=== PATIENT | male | born 1985 | race Caucasian/White ===

== ENCOUNTER 2018-05-23 20:02 | Emergency (ER) | payer MEDICAID ==
[2018-05-23 20:14] VITALS: BP 142/98
[2018-05-23] MEDS ORDERED: LORazepam 1 MG Tab PO ONE (20:40)
[2018-05-23] MEDS ORDERED: Fluorescein 0.6 MG Ophth Strip EYERT ONE (20:41)
--- NOTE | 2018-05-23 20:50 | EDM.PDOC ---
<Nicole Saxena - Last Filed: 05/23/18 21:32> ED HPI GENERAL MEDICAL PROBLEM - General Chief Complaint: Allergic Reaction Stated Complaint: SOB Time Seen by Provider: 05/23/18 20:09 Source of Information: Reports: Patient History Limitations: Reports: No Limitations - History of Present Illness INITIAL COMMENTS - FREE TEXT/NARRATIVE: 32 y/o male presents to ER with multiple complaints. He reports having cough, congestion, ear pain and right ear drainage for the past few days. Patient states he has been using Peppermint oil for his symptoms and he used it recently for his dental pain. He states he feels he is having a allergic reaction to this. He states he feels like he can't swallow. He has a past medical history of abusing stimulates, which results in his picking of his skin and development of cellulitis. He states he recently removed "a 1/2 contact out of his right." He states afterwards he then developed purulent drainage from it. He denies and fever or chills. He states he has not been around any sick individuals. Onset: Today Onset Date: 05/23/18 Onset Time: 09:00 Duration: Hour(s):, Getting Worse Location: Reports: Face, Chest, Abdomen Quality: Reports: Ache Severity: Mild Improves with: Reports: None, Other (used peppermint oil) Worsens with: Reports: Other (use of peppermint oil ) Associated Symptoms: Reports: No Other Symptoms, Cough, Shortness of Breath. Denies: Chest Pain, Fever/Chills Treatments NUTRITION CONSULTANT: Reports: Other (see below) Other Treatments NUTRITION CONSULTANT: Benadryl - Related Data Allergies Allergy/AdvReac Type Severity Reaction Status Date / Time bee venom protein (honey bee) Allergy Anaphylactic Verified 05/23/18 20:19 Shock Penicillins Allergy Hives Verified 05/23/18 21:39 strawberry Allergy Swollen Verified 05/23/18 20:10 Tongue Home Meds: Home Meds Mupirocin Oint [Bactroban Oint] 22 gm TOP TID #1 tube 12/17/15 [Rx] Ofloxacin [Ocuflox 0.3% Ophth Soln] 2 drop EYERT QID #1 bottle 12/17/15 [Rx] Triamcinolone Acetonide [Triamcinolone Acetonide 0.1% Oint] 15 gm TOP BID #1 tube 12/17/15 [Rx] Doxycycline [Vibramycin] 100 mg PO BID #20 cap 05/23/18 [Rx] Past Medical History Musculoskeletal History: Reports: Other (See Below) Other Musculoskeletal History: Rhabdomylosis history Neurological History: Reports: Other (See Below) Other Neuro History: [place] palsy Psychiatric History: Reports: Addiction, Anxiety - Past Surgical History GI Surgical History: Reports: Appendectomy Other Musculoskeletal Surgeries/Procedures:: Rhabdo Social & Family History - Tobacco Use Smoking Status *Q: Current Some Day Smoker Years of Tobacco use: 0 Packs/Tins Daily: 0 - Caffeine Use Caffeine Use: Reports: Coffee - Recreational Drug Use Recreational Drug Type: Reports: Marijuana/Hashish, Other (see below) Other Recreational Drug Type: CBD oil Recreational Drug Use Frequency: Daily ED ROS ALLERGIC REACTION - Review of Systems Review Of Systems: See Below Constitutional: Denies: Fever, Chills HEENT: Reports: Dental Pain, Ear Pain, Eye Discharge Respiratory: Reports: Shortness of Breath. Denies: Cough Cardiovascular: Reports: Chest Pain Endocrine: Reports: No Symptoms GI/Abdominal: Reports: No Symptoms : Reports: No Symptoms Musculoskeletal: Reports: No Symptoms Skin: Reports: Other ( multiple skin lesions noted on face and upper chest wall from patient picking.) Neurological: Reports: No Symptoms Psychiatric: Reports: Anxiety Hematologic/Lymphatic: Reports: No Symptoms Immunologic: Reports: No Symptoms ED EXAM GENERAL NO PERIP PULSE - Physical Exam Exam: See Below Exam Limited By: No Limitations General Appearance: Alert, WD/WN, No Apparent Distress Ears: Normal External Exam, Normal Canal, Hearing Grossly Normal, Normal TMs Nose: Normal Inspection, Normal Mucosa, No Blood Throat/Mouth: Normal Lips, Normal Teeth, Normal Gums, Normal Voice, No Airway Compromise, Inflammation Head: Atraumatic, Normocephalic. No: Facial Swelling, Sinus Tenderness Neck: Normal Inspection, Supple, Non-Tender, Full Range of Motion Respiratory/Chest: No Respiratory Distress, Lungs Clear, Normal Breath Sounds, No Accessory Muscle Use Cardiovascular: Normal Peripheral Pulses, Regular Rate, Rhythm, No Edema, No Gallop, No JVD, No Murmur Back Exam: Normal Inspection, Full Range of Motion Extremities: Normal Inspection, Normal Range of Motion, Non-Tender, No Pedal Edema, Normal Capillary Refill Neurological: Alert, Oriented, CN II-XII Intact, Normal Cognition, Normal Gait, Normal Reflexes, No Motor/Sensory Deficits Psychiatric: Anxious Skin Exam: Warm, Dry, Intact, Other (multiple lesions on face and upper chest wall) Lymphatic: No Adenopathy Course - Vital Signs Last Recorded V/S: Last Vital Signs Temp 98.2 F 05/23/18 20:10 Pulse 98 05/23/18 20:10 Resp 16 05/23/18 20:10 BP 142/98 H 05/23/18 20:10 Pulse Ox 100 05/23/18 20:10 - Orders/Labs/Meds Meds: Medications Discontinued Medications Generic Name Dose Route Start Last Admin Trade Name Waldemar PRN Reason Stop Dose Admin Doxycycline Hyclate 200 mg 05/23/18 21:24 05/23/18 21:33 Vibramycin PO 05/23/18 21:25 200 mg ONETIME ONE Administration Fluorescein Sodium 0.6 mg 05/23/18 20:41 05/23/18 20:50 Ful-Olive EYERT 05/23/18 20:42 0.6 mg ONETIME ONE Administration Lorazepam 1 mg 05/23/18 20:40 05/23/18 20:50 Ativan PO 05/23/18 20:41 1 mg ONETIME ONE Administration Proparacaine HCl 2 ml 05/23/18 21:19 05/23/18 21:34 Proparacaine 0.5% Ophth Soln EYERT 05/23/18 21:20 2 ml ONETIME ONE Administration Proparacaine HCl Confirm 05/23/18 21:17 05/23/18 21:32 Proparacaine 0.5% Ophth Soln Administered 05/23/18 21:18 Not Given Dose 15 ml .ROUTE .STK-MED ONE - Re-Assessments/Exams Free Text/Narrative Re-Assessment/Exam: 05/23/18 21:12 He received Ativan and his condition improved. Patient is resting comfortable and is less anxious. 05/23/18 21:27 His crain lamp revealed no corneal abrasion. Departure - Departure Time of Disposition: 21:29 Disposition: Home, Self-Care 01 Preliminary Cause of *Q: Cardiac Arrest Condition: Good Clinical Impression: Cellulitis, Conjunctivitis - Discharge Information *PRESCRIPTION DRUG MONITORING PROGRAM REVIEWED*: Not Applicable *COPY OF PRESCRIPTION DRUG MONITORING REPORT IN PATIENT CHI: Not Applicable Prescriptions: Doxycycline [Vibramycin] 100 mg PO BID #20 cap Instructions: Bacterial Conjunctivitis, [id number], Cellulitis, Adult Referrals: PCP,None [Primary Care Provider] - Forms: ED Department Discharge Additional Instructions: you have been diagnosis with bacterial conjunctivitis and cellulitis. Take the antibiotic until they are gone. Follow up with your PCP. Do not wear contacts until your eye infection is cleared up. Return to the ER for any new or acute worsening symptoms. <Brian Olson - Last Filed: 05/23/18 21:45> Course - Re-Assessments/Exams Free Text/Narrative Re-Assessment/Exam: 05/23/18 21:45 I examined the patient myself and I agree with Nicole's assessment, charting and plan.
[2018-05-23] MEDS ORDERED: Proparacaine 0.5% Ophth Soln 15 ML Bottle ONE (21:17)
[2018-05-23] MEDS ORDERED: Proparacaine 0.5% Ophth Soln 15 ML Bottle EYERT ONE (21:19)
[2018-05-23] MEDS ORDERED: Doxycycline 100 MG Cap PO ONE (21:24)
== END 2018-05-23 22:30 | disposition home or self-care (01) ==
LOC: JD.ED 20:02
DX: H10.89 Other conjunctivitis (principal); L03.211 Cellulitis of face; L03.313 Cellulitis of chest wall; F17.210 Nicotine dependence, cigarettes, uncomplicated; Z88.1 Allergy status to other antibiotic agents; Z91.018 Allergy to other foods
CPT/HCPCS: 99283; A9270

== ENCOUNTER 2020-06-18 12:26 | Inpatient (IN) | payer MEDICAID, OTHER ==
[2020-06-18] MEDS ORDERED: Ondansetron 4 MG/2 ML SDV IVPUSH ONE (12:47)
[2020-06-18] MEDS ORDERED: Sodium Chloride 0.9% 10 ML Syringe FLUSH PRN (12:50)
[2020-06-18] MEDS ORDERED: Diatrizoate Meglumine/Diatrizoate Sodium 37% 120 ML Bottle PO ONE (12:50)
[2020-06-18] MEDS ORDERED: Iopamidol 612 MG/ML 100 ML Bottle IVPUSH ONE (12:50)
[2020-06-18] MEDS ORDERED: Iopamidol 612 MG/ML 50 ML SDV IVPUSH ONE (12:50)
[2020-06-18] MEDS ORDERED: Sodium Chloride 0.9% 1,000 ML IV SCH (13:00)
--- NOTE | 2020-06-18 13:00 | EDM.PDOC ---
ED HPI GENERAL MEDICAL PROBLEM - General Chief Complaint: Abdominal Pain Stated Complaint: ABDOMINAL PAIN Time Seen by Provider: 06/18/20 12:37 Source of Information: Reports: Patient, RN Notes Reviewed History Limitations: Reports: No Limitations - History of Present Illness INITIAL COMMENTS - FREE TEXT/NARRATIVE: Patient is a 34-year-old male who presents to the ED for evaluation of his upper abdomen pain. Patient notes that he woke up this morning, and his upper abdomen started to develop some sharp stabbing pain. He notes the pain seems to have gotten worse throughout the day, seems to be intermittent. He has had pain like this before in the past, and thought that he could have possibly had an ulcer. He is not taking any mcdo-sbo-orcttix medication for reflux or for ulcer prophylaxis. He is not seeing anybody for further evaluation of this. Patient notes at baseline, he has some diarrhea and this does not seem to have worsened. He did feel some nausea earlier today, he went home from work and drink a little bit of water, that seem to make the pain worse in his stomach, he did have his girlfriend try some baking soda and water, but he notes that he vomited this up shortly after ingesting it. He has had no fevers or chills, cough or shortness of breath, redness or chest pain. He has had an appendectomy, but still retains his gallbladder and denies any other abdomen surgeries. Patient notes that the pain is a stabbing sensation and goes straight through to his back and does not radiate anywhere else. He notes no one else has been sick like this in his household. Does note that his dad has a history of ulcerative colitis but he has never had any sort of work-up for anything like this. Does note that the stomach pain seems to worsen with certain foods, and increased stress, he does note that he has had increased stress at work as well. Upper Abdominal Pain Score (Numeric/FACES): 8 - Related Data Allergies Allergy/AdvReac Type Severity Reaction Status Date / Time bee venom protein (honey bee) Allergy Anaphylactic Verified 06/18/20 12:39 Shock Penicillins Allergy Hives Verified 06/18/20 12:39 strawberry Allergy Swollen Verified 06/18/20 12:39 Tongue Home Meds: Home Meds . 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 ED EXAM, GI/ABD - Physical Exam Exam: See Below Exam Limited By: No Limitations General Appearance: Alert, WD/WN, No Apparent Distress Respiratory/Chest: No Respiratory Distress, Lungs Clear, Normal Breath Sounds, No Accessory Muscle Use, Chest Non-Tender Cardiovascular: Normal Peripheral Pulses, Regular Rate, Rhythm, No Edema, No Murmur GI/Abdominal Exam: Normal Bowel Sounds, Soft, No Distention, No Mass, Tender (over epigastrium) Extremities: Normal Inspection, Normal Capillary Refill Neurological: Alert, Oriented, Normal Cognition, No Motor/Sensory Deficits Psychiatric: Normal Affect, Normal Mood Skin Exam: Warm, Dry, Intact, Normal Color, No Rash Course - Vital Signs Last Recorded V/S: Last Vital Signs Temp 99.1 F 06/18/20 14:09 Pulse 70 06/18/20 12:37 Resp 16 06/18/20 12:37 BP 143/97 H 06/18/20 12:37 Pulse Ox 99 06/18/20 12:37 - Orders/Labs/Meds Orders: Active Orders 24 hr Category Date Time Status Gastrointestinal Tube Mgmt [RC] ASDIRECTED Care 06/18/20 14:44 Active Sodium Chloride 0.9% [Normal Saline] 1,000 ml Med 06/18/20 13:00 Active IV ASDIRECTED Sodium Chloride 0.9% [Normal Saline] 1,000 ml Med 06/18/20 14:33 Active IV ONETIME Sodium Chloride 0.9% [Saline Flush] Med 06/18/20 12:50 Active 10 ml FLUSH ONETIME PRN Nasogastric Orogastric Tube Insertion [OM.PC] Routine Oth 06/18/20 14:44 Ordered Medication Orders Sodium Chloride (Normal Saline) 1,000 mls @ 999 mls/hr IV ASDIRECTED HEATHER Last Admin: 06/18/20 12:59 Dose: 999 mls/hr Documented by: MATLDIANNA Sodium Chloride (Normal Saline) 1,000 mls @ 150 mls/hr IV ONETIME ONE Stop: 06/18/20 21:12 Last Admin: 06/18/20 14:50 Dose: 150 mls/hr Documented by: MAELNA Sodium Chloride (Sodium Chloride 0.9% 10 Ml Syringe) 10 ml FLUSH ONETIME PRN PRN Reason: IV FLUSH Last Admin: 06/18/20 14:00 Dose: 10 ml Documented by: MARLEN Labs: Laboratory Tests 06/18/20 06/18/20 06/18/20 Range/Units 12:51 12:51 12:55 WBC 11.07 H (4.23-9.07) K/mm3 RBC 5.39 (4.63-6.08) M/mm3 Hgb 15.3 (13.7-17.5) gm/dl Hct 46.4 (40.1-51.0) % MCV 86.1 (79.0-92.2) fl MCH 28.4 (25.7-32.2) pg MCHC 33.0 (32.2-35.5) g/dl RDW Std Deviation 39.3 (35.1-43.9) fL Plt Count 236 (163-337) K/mm3 MPV 9.2 L (9.4-12.3) fl Neutrophils % (Manual) 81 H (40-60) % Band Neutrophils % 0 (0-10) % Lymphocytes % (Manual) 12 L (20-40) % Atypical Lymphs % 0 % Monocytes % (Manual) 7 (2-10) % Eosinophils % (Manual) 0 L (0.8-7.0) % Basophils % (Manual) 0 L (0.2-1.2) Platelet Estimate Adequate RBC Morph Comment Normal Sodium 142 (136-145) mEq/L Potassium 4.4 (3.5-5.1) mEq/L Chloride 103 (98-107) mEq/L Carbon Dioxide 27 (21-32) mEq/L Anion Gap 16.4 H (5-15) BUN 15 (7-18) mg/dL Creatinine 1.1 (0.7-1.3) mg/dL Est Cr Clr Drug Dosing 98.62 mL/min Estimated GFR (MDRD) > 60 (>60) mL/min BUN/Creatinine Ratio 13.6 L (14-18) Glucose 99 (74-106) mg/dL Calcium 9.6 (8.5-10.1) mg/dL Total Bilirubin 0.7 (0.2-1.0) mg/dL AST 29 (15-37) U/L ALT 41 (16-63) U/L Alkaline Phosphatase 77 (46-116) U/L C-Reactive Protein <0.2 (<1.0) mg/dL Total Protein 7.9 (6.4-8.2) g/dl Albumin 4.1 (3.4-5.0) g/dl Globulin 3.8 gm/dL Albumin/Globulin Ratio 1.1 (1-2) Lipase 110 (73-393) U/L Urine Color (Yellow) Urine Appearance (Clear) Urine pH (5.0-8.0) Ur Specific Goessel (1.005-1.030) Urine Protein (Negative) Urine Glucose (UA) (Negative) Urine Ketones (Negative) Urine Occult Blood (Negative) Urine Nitrite (Negative) Urine Bilirubin (Negative) Urine Urobilinogen (0.2-1.0) Ur Leukocyte Esterase (Negative) Urine RBC (0-5) /hpf Urine WBC (0-5) /hpf Ur Squamous Epith Cells (0-5) /hpf Urine Bacteria (FEW) /hpf Urine Mucus (FEW) /hpf Influenza Type A RNA (NEGATIVE) Influenza Type B RNA (NEGATIVE) SARS-CoV-2 RNA (KILLIAN) (NEGATIVE) 06/18/20 06/18/20 Range/Units 13:51 15:26 WBC (4.23-9.07) K/mm3 RBC (4.63-6.08) M/mm3 Hgb (13.7-17.5) gm/dl Hct (40.1-51.0) % MCV (79.0-92.2) fl MCH (25.7-32.2) pg MCHC (32.2-35.5) g/dl RDW Std Deviation (35.1-43.9) fL Plt Count (163-337) K/mm3 MPV (9.4-12.3) fl Neutrophils % (Manual) (40-60) % Band Neutrophils % (0-10) % Lymphocytes % (Manual) (20-40) % Atypical Lymphs % % Monocytes % (Manual) (2-10) % Eosinophils % (Manual) (0.8-7.0) % Basophils % (Manual) (0.2-1.2) Platelet Estimate RBC Morph Comment Sodium (136-145) mEq/L Potassium (3.5-5.1) mEq/L Chloride (98-107) mEq/L Carbon Dioxide (21-32) mEq/L Anion Gap (5-15) BUN (7-18) mg/dL Creatinine (0.7-1.3) mg/dL Est Cr Clr Drug Dosing mL/min Estimated GFR (MDRD) (>60) mL/min BUN/Creatinine Ratio (14-18) Glucose (74-106) mg/dL Calcium (8.5-10.1) mg/dL Total Bilirubin (0.2-1.0) mg/dL AST (15-37) U/L ALT (16-63) U/L Alkaline Phosphatase (46-116) U/L C-Reactive Protein (<1.0) mg/dL Total Protein (6.4-8.2) g/dl Albumin (3.4-5.0) g/dl Globulin gm/dL Albumin/Globulin Ratio (1-2) Lipase (73-393) U/L Urine Color Yellow (Yellow) Urine Appearance Clear (Clear) Urine pH 8.0 (5.0-8.0) Ur Specific Goessel 1.020 (1.005-1.030) Urine Protein Negative (Negative) Urine Glucose (UA) Negative (Negative) Urine Ketones Negative (Negative) Urine Occult Blood Negative (Negative) Urine Nitrite Negative (Negative) Urine Bilirubin Negative (Negative) Urine Urobilinogen 0.2 (0.2-1.0) Ur Leukocyte Esterase Negative (Negative) Urine RBC 0-5 (0-5) /hpf Urine WBC 0-5 (0-5) /hpf Ur Squamous Epith Cells 0-5 (0-5) /hpf Urine Bacteria Few (FEW) /hpf Urine Mucus Few (FEW) /hpf Influenza Type A RNA Negative (NEGATIVE) Influenza Type B RNA Negative (NEGATIVE) SARS-CoV-2 RNA (KILLIAN) Positive H (NEGATIVE) Meds: Medications Generic Name Dose Route Start Last Admin Trade Name Freq PRN Reason Stop Dose Admin Sodium Chloride 1,000 mls @ 999 mls/hr 06/18/20 13:00 06/18/20 12:59 Normal Saline IV 999 mls/hr ASDIRECTED HEATHER Administration Sodium Chloride 1,000 mls @ 150 mls/hr 06/18/20 14:33 06/18/20 14:50 Normal Saline IV 06/18/20 21:12 150 mls/hr ONETIME ONE Administration Sodium Chloride 10 ml 06/18/20 12:50 06/18/20 14:00 Sodium Chloride 0.9% 10 Ml Syringe FLUSH 10 ml ONETIME PRN Administration IV FLUSH Discontinued Medications Generic Name Dose Route Start Last Admin Trade Name Freq PRN Reason Stop Dose Admin Al Hydroxide/Mg Hydroxide 30 0 ml 06/18/20 14:09 06/18/20 14:19 ml/ Lidocaine HCl 15 ml PO 06/18/20 14:10 45 ml ONETIME ONE Administration Hydromorphone HCl 1 mg 06/18/20 15:51 06/18/20 15:55 Hydromorphone 1 Mg/Ml Syringe IVPUSH 06/18/20 15:52 1 mg ONETIME ONE Administration Iopamidol 50 ml 06/18/20 12:50 06/18/20 14:00 Iopamidol 612 Mg/Ml 50 Ml Sdv IVPUSH 06/18/20 12:51 50 ml ONETIME ONE Administration Iopamidol 100 ml 06/18/20 12:50 06/18/20 14:00 Iopamidol 612 Mg/Ml 100 Ml Bottle IVPUSH 06/18/20 12:51 100 ml ONETIME ONE Administration Ondansetron HCl 4 mg 06/18/20 12:47 06/18/20 13:00 Ondansetron 4 Mg/2 Ml Sdv IVPUSH 06/18/20 12:48 4 mg ONETIME ONE Administration - Re-Assessments/Exams Free Text/Narrative Re-Assessment/Exam: 06/18/20 12:59 Patient presents to the ED for his upper abdominal pain, it is highly suspicious for possible ulcer in nature, but due to the intensity of his pain we will go ahead and get some baseline labs, get IV started, do an abdomen pelvis CT with IV and oral contrast for further evaluation. 06/18/20 14:23 Laboratory evaluation demonstrates mildly elevated white count 11.07 with 81% neutrophils and no bands. Metabolic panel essentially unremarkable, lipase is within normal limits, CRP is undetectably low. I did go over the CT with Dr. Bui, and he believes it is suspicious for possible small bowel obstruction, still awaiting official radiology read however. This would be somewhat consistent with his clinical course, will try to run his case past the [facility]on on-call Dr. Capellan for possible hospital admission. 06/18/20 14:46 I was able to get a hold of Dr. Capellan, he does accept the patient for hospital admission. He does request NG tube to be placed, continue fluids, pain management nausea management. He will be in to evaluate the patient. 06/18/20 15:53 NG tube is in satisfactory position on x-ray. Patient was having increased pain, so we will go ahead and do 1 mg Dilaudid for management. 06/18/20 16:14 Was made aware by lab, the patient was COVID positive. I have called and made Dr. Capellan aware of this. Patient states that he is not known to have had Covid prior to today's positive result. Other than her GI symptoms, patient is fairly asymptomatic. Departure - Departure Time of Disposition: 14:47 Disposition: Refer to Observation Condition: Good Clinical Impression: Partial small bowel obstruction - Discharge Information Sepsis Event Note (ED) - Evaluation Sepsis Screening Result: No Definite Risk - Focused Exam Vital Signs: Vital Signs Temp Pulse Resp BP Pulse Ox 06/18/20 14:09 99.1 F 06/18/20 12:37 97.8 F 70 16 143/97 H 99 - My Orders Last 24 Hours: My Active Orders 06/18/20 12:50 Sodium Chloride 0.9% [Saline Flush] 10 ml FLUSH ONETIME PRN 06/18/20 13:00 Sodium Chloride 0.9% [Normal Saline] 1,000 ml IV ASDIRECTED 06/18/20 14:33 Sodium Chloride 0.9% [Normal Saline] 1,000 ml IV ONETIME 06/18/20 14:44 Gastrointestinal Tube Mgmt [RC] ASDIRECTED Nasogastric Orogastric Tube Insertion [OM.PC] Routine - Assessment/Plan Last 24 Hours: My Active Orders 06/18/20 12:50 Sodium Chloride 0.9% [Saline Flush] 10 ml FLUSH ONETIME PRN 06/18/20 13:00 Sodium Chloride 0.9% [Normal Saline] 1,000 ml IV ASDIRECTED 06/18/20 14:33 Sodium Chloride 0.9% [Normal Saline] 1,000 ml IV ONETIME 06/18/20 14:44 Gastrointestinal Tube Mgmt [RC] ASDIRECTED Nasogastric Orogastric Tube Insertion [OM.PC] Routine
[2020-06-18] MEDS ORDERED: Alum Hydrox/Mag Hydrox/Simeth 30 ML, Lidocaine 2% 15 ML PO ONE ×2 (14:09)
--- NOTE | 2020-06-18 14:31 | CT ---
CT abdomen and pelvis Technique: Multiple axial sections were obtained from above the dome of the diaphragm inferiorly through the pubic symphysis. Intravenous and oral contrast was utilized. Delayed images were obtained to the bladder. Reconstructed coronal and sagittal images were obtained. Findings: Visualized lung bases show nothing acute. Liver contains no focal abnormality. Spleen appears within normal limits. Adrenal glands show no nodule. Pancreas is within normal limits. Gallbladder contains no calcified gallstones. Kidneys show symmetric contrast enhancement with no hydronephrosis or mass. Aorta shows no aneurysm. No retroperitoneal adenopathy or mesenteric abnormalities are seen. Small fat-containing partial inguinal hernias are noted on both sides. There are dilated small bowel loops being seen within the left upper abdomen. There is transition between the dilated small bowel loops and normal small bowel loops within the left mid to lower abdomen. Etiology of this is not seen. No pelvic mass or adenopathy is seen. Delayed images through the bladder show contrast within the distal ureters and within the bladder. Bone window settings were reviewed which show a small detached spinous process of L5 which appears to be old. No acute osseous finding is seen. Impression: 1. Dilated proximal small bowel loops with transition point within the left mid to lower abdomen. Etiology for this is not seen. Findings are suspicious for possible partial small bowel obstruction. This could represent a small focal mesenteric defect or adhesion if patient has had prior surgery. 2. No additional abnormality is appreciated on CT study of the abdomen and pelvis. Diagnostic code #5
[2020-06-18] MEDS ORDERED: Sodium Chloride 0.9% 1,000 ML IV ONE (14:33)
--- NOTE | 2020-06-18 15:49 | CR ---
Chest: Portable view of the chest was obtained. Comparison: No prior chest imaging is available. Nasogastric tube is seen. Tip lies within the body of the stomach. Heart size and mediastinum are normal. Lungs are clear with no acute parenchymal change. Bony structures are grossly intact. Impression: 1. Satisfactory position of nasogastric tube. 2. Nothing acute is seen on portable chest x-ray. Diagnostic code #2
[2020-06-18] MEDS ORDERED: HYDROmorphone 1 MG/ML Syringe IVPUSH ONE (15:51)
[2020-06-18 16:10] LABS: CORONAVIRUS COVID-19 NAA POSITIVE (NEGATIVE)
[2020-06-18] MEDS ORDERED: Ondansetron 4 MG/2 ML SDV IV PRN (19:22)
--- NOTE | 2020-06-18 19:22 | PCM.HP.2 ---
H&P History of Present Illness - General Date of Service: 06/18/20 Admit Problem/Dx: Admission Diagnosis/Problem Admission Diagnosis/Problem Small bowel obstruction Source of Information: Patient History Limitations: Reports: No Limitations - History of Present Illness Initial Comments - Free Text/Narative: Patient started having acute onset colicky upper abdominal pain around 6:30 am today. The pain persisted. The pain was associated with nausea but did not have any emesis until early afternoon. He did have some diarrhea as well. He ate tacos last night but did well overnight. He presented to the hospital at 12-1 pm. In the ED WBC was 11, chem was approximately normal. CT a/p revealed SBO. Vapes. Had prior open appendectomy. NGT was placed in the ED> He reports that now the pain is better but still has some nausea Onset of Symptoms: Reports: Sudden Duration of Symptoms: Reports: Hour(s): (12), Intermittent Location: Reports: Abdomen Quality: Reports: Stabbing Severity: Moderate Improves with: Reports: None Worsens with: Reports: None Associated Symptoms: Reports: Nausea/Vomiting Upper Abdominal Pain Score (Numeric/FACES): 6 - Related Data Allergies/Adverse Reactions: Allergies Allergy/AdvReac Type Severity Reaction Status Date / Time bee venom protein (honey bee) Allergy Anaphylactic Verified 06/18/20 12:39 Shock Penicillins Allergy Hives Verified 06/18/20 12:39 strawberry Allergy Swollen Verified 06/18/20 12:39 Tongue Home Medications: Home Meds Ascorbic Acid [Vitamin C] 1,000 mg PO DAILY 06/18/20 [History] Lysine 1,000 mg PO DAILY 06/18/20 [History] Vit A/C/Biotin/Zinc/Selenometh [Biotin-Vitamin C Softgel] 1 each PO DAILY 06/18/20 [History] Past Medical History HEENT History: Reports: Other (See Below) Other HEENT History: Sinus issues in the past. Gastrointestinal History: Reports: GERD Genitourinary History: Reports: Renal Calculus, Other (See Below) Musculoskeletal History: Reports: Other (See Below) Other Musculoskeletal History: Rhabdomylosis history Neurological History: Reports: Concussion, Other (See Below) Other Neuro History: [place] palsy Psychiatric History: Reports: Addiction, Anxiety Dermatologic History: Reports: Other (See Below) Other Dermatologic History: Sensitive skin. - Infectious Disease History Infectious Disease History: Reports: Chicken Pox, Novel Coronavirus, Shingles - Past Surgical History GI Surgical History: Reports: Appendectomy Other Musculoskeletal Surgeries/Procedures:: Rhabdo Social & Family History - Family History Family Medical History: No Pertinent Family History - Tobacco Use Tobacco Use Status *Q: Never Tobacco User Years of Tobacco use: 2 Packs/Tins Daily: 0.1 - Caffeine Use Caffeine Use: Reports: Coffee, Energy Drinks, Soda - Recreational Drug Use Recreational Drug Use: No H&P Review of Systems - Review of Systems: Review Of Systems: See Below General: Reports: No Symptoms HEENT: Reports: No Symptoms Pulmonary: Reports: No Symptoms Cardiovascular: Reports: No Symptoms Gastrointestinal: Reports: No Symptoms Genitourinary: Reports: No Symptoms Musculoskeletal: Reports: No Symptoms Skin: Reports: No Symptoms Psychiatric: Reports: No Symptoms Neurological: Reports: No Symptoms Hematologic/Lymphatic: Reports: No Symptoms Exam - Exam Exam: See Below - Vital Signs Vital Signs: Last Vital Signs Temp 99.3 F 06/18/20 16:46 Pulse 87 06/18/20 16:46 Resp 20 06/18/20 16:46 BP 157/91 H 06/18/20 16:46 Pulse Ox 96 06/18/20 16:46 Weight: 104.372 kg - Exam General: Alert, Oriented, Cooperative Lungs: Clear to Auscultation, Normal Respiratory Effort Cardiovascular: Regular Rate, Regular Rhythm GI/Abdominal Exam: Soft, Non-Tender, No Distention, No Abnormal Bruit - Patient Data Lab Results Last 24 hrs: Laboratory Results - last 24 hr 06/18/20 06/18/20 06/18/20 Range/Units 12:51 12:51 12:55 WBC 11.07 H (4.23-9.07) K/mm3 RBC 5.39 (4.63-6.08) M/mm3 Hgb 15.3 (13.7-17.5) gm/dl Hct 46.4 (40.1-51.0) % MCV 86.1 (79.0-92.2) fl MCH 28.4 (25.7-32.2) pg MCHC 33.0 (32.2-35.5) g/dl RDW Std Deviation 39.3 (35.1-43.9) fL Plt Count 236 (163-337) K/mm3 MPV 9.2 L (9.4-12.3) fl Neutrophils % (Manual) 81 H (40-60) % Band Neutrophils % 0 (0-10) % Lymphocytes % (Manual) 12 L (20-40) % Atypical Lymphs % 0 % Monocytes % (Manual) 7 (2-10) % Eosinophils % (Manual) 0 L (0.8-7.0) % Basophils % (Manual) 0 L (0.2-1.2) Platelet Estimate Adequate RBC Morph Comment Normal Sodium 142 (136-145) mEq/L Potassium 4.4 (3.5-5.1) mEq/L Chloride 103 (98-107) mEq/L Carbon Dioxide 27 (21-32) mEq/L Anion Gap 16.4 H (5-15) BUN 15 (7-18) mg/dL Creatinine 1.1 (0.7-1.3) mg/dL Est Cr Clr Drug Dosing 98.62 mL/min Estimated GFR (MDRD) > 60 (>60) mL/min BUN/Creatinine Ratio 13.6 L (14-18) Glucose 99 (74-106) mg/dL Calcium 9.6 (8.5-10.1) mg/dL Total Bilirubin 0.7 (0.2-1.0) mg/dL AST 29 (15-37) U/L ALT 41 (16-63) U/L Alkaline Phosphatase 77 (46-116) U/L C-Reactive Protein <0.2 (<1.0) mg/dL Total Protein 7.9 (6.4-8.2) g/dl Albumin 4.1 (3.4-5.0) g/dl Globulin 3.8 gm/dL Albumin/Globulin Ratio 1.1 (1-2) Lipase 110 (73-393) U/L Urine Color (Yellow) Urine Appearance (Clear) Urine pH (5.0-8.0) Ur Specific [place] (1.005-1.030) Urine Protein (Negative) Urine Glucose (UA) (Negative) Urine Ketones (Negative) Urine Occult Blood (Negative) Urine Nitrite (Negative) Urine Bilirubin (Negative) Urine Urobilinogen (0.2-1.0) Ur Leukocyte Esterase (Negative) Urine RBC (0-5) /hpf Urine WBC (0-5) /hpf Ur Squamous Epith Cells (0-5) /hpf Urine Bacteria (FEW) /hpf Urine Mucus (FEW) /hpf Influenza Type A RNA (NEGATIVE) Influenza Type B RNA (NEGATIVE) SARS-CoV-2 RNA (KILLIAN) (NEGATIVE) 06/18/20 06/18/20 Range/Units 13:51 15:26 WBC (4.23-9.07) K/mm3 RBC (4.63-6.08) M/mm3 Hgb (13.7-17.5) gm/dl Hct (40.1-51.0) % MCV (79.0-92.2) fl MCH (25.7-32.2) pg MCHC (32.2-35.5) g/dl RDW Std Deviation (35.1-43.9) fL Plt Count (163-337) K/mm3 MPV (9.4-12.3) fl Neutrophils % (Manual) (40-60) % Band Neutrophils % (0-10) % Lymphocytes % (Manual) (20-40) % Atypical Lymphs % % Monocytes % (Manual) (2-10) % Eosinophils % (Manual) (0.8-7.0) % Basophils % (Manual) (0.2-1.2) Platelet Estimate RBC Morph Comment Sodium (136-145) mEq/L Potassium (3.5-5.1) mEq/L Chloride (98-107) mEq/L Carbon Dioxide (21-32) mEq/L Anion Gap (5-15) BUN (7-18) mg/dL Creatinine (0.7-1.3) mg/dL Est Cr Clr Drug Dosing mL/min Estimated GFR (MDRD) (>60) mL/min BUN/Creatinine Ratio (14-18) Glucose (74-106) mg/dL Calcium (8.5-10.1) mg/dL Total Bilirubin (0.2-1.0) mg/dL AST (15-37) U/L ALT (16-63) U/L Alkaline Phosphatase (46-116) U/L C-Reactive Protein (<1.0) mg/dL Total Protein (6.4-8.2) g/dl Albumin (3.4-5.0) g/dl Globulin gm/dL Albumin/Globulin Ratio (1-2) Lipase (73-393) U/L Urine Color Yellow (Yellow) Urine Appearance Clear (Clear) Urine pH 8.0 (5.0-8.0) Ur Specific [place] 1.020 (1.005-1.030) Urine Protein Negative (Negative) Urine Glucose (UA) Negative (Negative) Urine Ketones Negative (Negative) Urine Occult Blood Negative (Negative) Urine Nitrite Negative (Negative) Urine Bilirubin Negative (Negative) Urine Urobilinogen 0.2 (0.2-1.0) Ur Leukocyte Esterase Negative (Negative) Urine RBC 0-5 (0-5) /hpf Urine WBC 0-5 (0-5) /hpf Ur Squamous Epith Cells 0-5 (0-5) /hpf Urine Bacteria Few (FEW) /hpf Urine Mucus Few (FEW) /hpf Influenza Type A RNA Negative (NEGATIVE) Influenza Type B RNA Negative (NEGATIVE) SARS-CoV-2 RNA (KILLIAN) Positive H (NEGATIVE) Result Diagrams: 06/18/20 12:51 06/18/20 12:51 Sepsis Event Note - Evaluation Sepsis Screening Result: No Definite Risk - Focused Exam Vital Signs: Vital Signs Temp Temp Pulse Pulse Resp BP BP 06/18/20 16:46 99.3 F 87 20 157/91 H 06/18/20 16:30 96 16 131/83 06/18/20 16:00 95 16 127/87 06/18/20 15:00 89 14 133/80 06/18/20 14:09 99.1 F 06/18/20 14:00 79 14 137/83 06/18/20 13:00 81 12 130/85 06/18/20 12:37 97.8 F 70 16 143/97 H Pulse Ox 06/18/20 16:46 96 06/18/20 16:30 95 06/18/20 16:00 97 06/18/20 15:00 98 06/18/20 14:09 06/18/20 14:00 100 06/18/20 13:00 99 06/18/20 12:37 99 Problem List Initiated/Reviewed/Updated: No Orders Last 24hrs: Active Orders 24 hr Category Date Time Status Admission Status [Patient Status] [ADT] Routine ADT 06/18/20 15:54 Active Gastrointestinal Tube Mgmt [RC] 04,10,16,22 Care 06/18/20 14:44 Active Lactated Ringers [Ringers, Lactated] 1,000 ml Med 06/18/20 19:15 Active IV ASDIRECTED Sodium Chloride 0.9% [Normal Saline] 1,000 ml Med 06/18/20 14:33 Active IV ONETIME Sodium Chloride 0.9% [Saline Flush] Med 06/18/20 12:50 Active 10 ml FLUSH ONETIME PRN Nasogastric Orogastric Tube Insertion [OM.PC] Routine Oth 06/18/20 14:44 Ordered Resuscitation Status Routine Resus Stat 06/18/20 17:40 Ordered Medication Orders Sodium Chloride (Normal Saline) 1,000 mls @ 150 mls/hr IV ONETIME ONE Stop: 06/18/20 21:12 Last Admin: 06/18/20 14:50 Dose: 150 mls/hr Documented by: MALENA Lactated Ringer's (Ringers, Lactated) 1,000 mls @ 150 mls/hr IV ASDIRECTED HEATHER Sodium Chloride (Sodium Chloride 0.9% 10 Ml Syringe) 10 ml FLUSH ONETIME PRN PRN Reason: IV FLUSH Last Admin: 06/18/20 14:00 Dose: 10 ml Documented by: MARLEN Assessment/Plan Comment:: Patient admitted for SBO. Covid-19 positive. prior open appendectomy. Plan - Attempt non-operative management at this time ie NPO, IVF, NGT, pain control. - Will get Upright ABd xray in the AM to check contrast progression
[2020-06-18] MEDS: HYDROmorphone 0.5 MG/0.5 ML Syringe IVPUSH PRN (20:07)
[2020-06-18] MEDS: Lactated Ringers 1,000 ML IV SCH (22:20)
[2020-06-19] MEDS: HYDROmorphone 0.5 MG/0.5 ML Syringe IVPUSH PRN ×3 (01:07→09:37)
[2020-06-19] MEDS: Lactated Ringers 1,000 ML IV SCH ×3 (05:26→18:41)
[2020-06-19] MEDS ORDERED: Magnesium Sulfate/Water 2 GM/50 ML BAG IV ONE (07:24)
[2020-06-19] MEDS: Enoxaparin 40 MG/0.4 ML Syringe SUBCUT SCH (08:32)
[2020-06-19] MEDS: Benzocaine/Cetylpyridinium/Menthol Lozenge MUCMEM PRN ×2 (09:41→15:24)
[2020-06-19] MEDS ORDERED: Potassium Phosphates 30 MMOLE in Sodium Chloride 0.9% 500 ML IV ONE (10:00)
--- NOTE | 2020-06-19 10:07 | CR ---
Abdomen: Upright view of the abdomen was obtained. Comparison: No previous study. Several small air-filled loops of small bowel are noted. Contrast is noted throughout the colon. Nasogastric tube is seen. No free air is noted. Minimal atelectasis is noted within both lung bases. Impression: 1. Minimally prominent small bowel loops. These appear decreased from prior CT exam. 2. Contrast within the colon which rules out complete small bowel obstruction. Diagnostic code #3
--- NOTE | 2020-06-19 14:25 | PCM.PN ---
- General Info Date of Service: 06/19/20 Admission Dx/Problem (Free Text): Admission Diagnosis/Problem Admission Diagnosis/Problem Small bowel obstruction Subjective Update: Patient feels better.No abdominal pain. Had no emesis. Feels hungry NGT output at 880 clear Functional Status: Reports: Pain Controlled, Urinating - Review of Systems General: Reports: No Symptoms HEENT: Reports: No Symptoms Pulmonary: Reports: No Symptoms Cardiovascular: Reports: No Symptoms Gastrointestinal: Reports: No Symptoms Genitourinary: Reports: No Symptoms Musculoskeletal: Reports: No Symptoms Skin: Reports: No Symptoms Neurological: Reports: No Symptoms - Patient Data Vitals - Most Recent: Last Vital Signs Temp 98.8 F 06/19/20 11:54 Pulse 79 06/19/20 11:54 Resp 16 06/19/20 11:54 BP 128/79 06/19/20 11:54 Pulse Ox 96 06/19/20 11:54 Weight - Most Recent: 102.875 kg I&O - Last 24 Hours: Intake & Output 06/18/20 06/19/20 06/19/20 22:59 06:59 14:59 Intake Total 1528 Output Total 580 1550 Balance -580 -22 Lab Results Last 24 Hours: Laboratory Results - last 24 hr 06/18/20 06/18/20 06/19/20 Range/Units 13:51 15:26 05:07 WBC 8.39 (4.23-9.07) K/mm3 RBC 4.78 (4.63-6.08) M/mm3 Hgb 13.6 L D (13.7-17.5) gm/dl Hct 41.5 (40.1-51.0) % MCV 86.8 (79.0-92.2) fl MCH 28.5 (25.7-32.2) pg MCHC 32.8 (32.2-35.5) g/dl RDW Std Deviation 39.2 (35.1-43.9) fL Plt Count 188 (163-337) K/mm3 MPV 9.7 (9.4-12.3) fl Neut % (Auto) 79.2 H (34.0-67.9) % Lymph % (Auto) 13.2 L (21.8-53.1) % [place] % (Auto) 6.9 (5.3-12.2) % Eos % (Auto) 0.5 L (0.8-7.0) Baso % (Auto) 0.1 (0.1-1.2) % Neut # (Auto) 6.64 H (1.78-5.38) K/mm3 Lymph # (Auto) 1.11 L (1.32-3.57) K/mm3 [place] # (Auto) 0.58 (0.30-0.82) K/mm3 Eos # (Auto) 0.04 (0.04-0.54) K/mm3 Baso # (Auto) 0.01 (0.01-0.08) K/mm3 Sodium (136-145) mEq/L Potassium (3.5-5.1) mEq/L Chloride (98-107) mEq/L Carbon Dioxide (21-32) mEq/L Anion Gap (5-15) BUN (7-18) mg/dL Creatinine (0.7-1.3) mg/dL Est Cr Clr Drug Dosing mL/min Estimated GFR (MDRD) (>60) mL/min BUN/Creatinine Ratio (14-18) Glucose (74-106) mg/dL Calcium (8.5-10.1) mg/dL Phosphorus (2.6-4.7) mg/dL Magnesium (1.8-2.4) mg/dl Urine RBC 0-5 (0-5) /hpf Urine WBC 0-5 (0-5) /hpf Ur Squamous Epith Cells 0-5 (0-5) /hpf Urine Bacteria Few (FEW) /hpf Urine Mucus Few (FEW) /hpf Influenza Type A RNA Negative (NEGATIVE) Influenza Type B RNA Negative (NEGATIVE) SARS-CoV-2 RNA (KILLIAN) Positive H (NEGATIVE) 06/19/20 Range/Units 05:07 WBC (4.23-9.07) K/mm3 RBC (4.63-6.08) M/mm3 Hgb (13.7-17.5) gm/dl Hct (40.1-51.0) % MCV (79.0-92.2) fl MCH (25.7-32.2) pg MCHC (32.2-35.5) g/dl RDW Std Deviation (35.1-43.9) fL Plt Count (163-337) K/mm3 MPV (9.4-12.3) fl Neut % (Auto) (34.0-67.9) % Lymph % (Auto) (21.8-53.1) % [place] % (Auto) (5.3-12.2) % Eos % (Auto) (0.8-7.0) Baso % (Auto) (0.1-1.2) % Neut # (Auto) (1.78-5.38) K/mm3 Lymph # (Auto) (1.32-3.57) K/mm3 [place] # (Auto) (0.30-0.82) K/mm3 Eos # (Auto) (0.04-0.54) K/mm3 Baso # (Auto) (0.01-0.08) K/mm3 Sodium 140 (136-145) mEq/L Potassium 3.6 (3.5-5.1) mEq/L Chloride 103 (98-107) mEq/L Carbon Dioxide 27 (21-32) mEq/L Anion Gap 13.6 (5-15) BUN 13 (7-18) mg/dL Creatinine 1.3 (0.7-1.3) mg/dL Est Cr Clr Drug Dosing 91.34 mL/min Estimated GFR (MDRD) > 60 (>60) mL/min BUN/Creatinine Ratio 10.0 L (14-18) Glucose 112 H (74-106) mg/dL Calcium 8.3 L (8.5-10.1) mg/dL Phosphorus 2.4 L (2.6-4.7) mg/dL Magnesium 1.7 L (1.8-2.4) mg/dl Urine RBC (0-5) /hpf Urine WBC (0-5) /hpf Ur Squamous Epith Cells (0-5) /hpf Urine Bacteria (FEW) /hpf Urine Mucus (FEW) /hpf Influenza Type A RNA (NEGATIVE) Influenza Type B RNA (NEGATIVE) SARS-CoV-2 RNA (KILLIAN) (NEGATIVE) Med Orders - Current: Current Medications Benzocaine/Menthol (Benzocaine/Cetylpyridinium/Menthol Lozenge) 1 lozenge MUC MEM Q2H PRN PRN Reason: Sore Throat Last Admin: 06/19/20 09:41 Dose: 1 lozenge Documented by: Enoxaparin Sodium (Enoxaparin 40 Mg/0.4 Ml Syringe) 40 mg SUBCUT DAILY [facility] Last Admin: 06/19/20 08:32 Dose: 40 mg Documented by: Hydromorphone HCl (Hydromorphone 0.5 Mg/0.5 Ml Syringe) 0.5 mg IVPUSH Q4H PRN PRN Reason: Pain (severe 7-10) Last Admin: 06/19/20 09:37 Dose: 0.5 mg Documented by: Lactated Ringer's (Ringers, Lactated) 1,000 mls @ 150 [facility] Last Admin: 06/19/20 12:03 Dose: 150 mls/hr Documented by: Potassium Phosphate 30 mmole/ (Sodium Chloride) 510 mls @ 102 mls/hr IV ONETIME ONE Stop: 06/19/20 14:59 Last Admin: 06/19/20 09:42 Dose: 102 mls/hr Documented by: Ondansetron HCl (Ondansetron 4 Mg/2 Ml Sdv) 4 mg IV Q4H PRN PRN Reason: Nausea/Vomiting Sodium Chloride (Sodium Chloride 0.9% 10 Ml Syringe) 10 ml FLUSH ONETIME PRN PRN Reason: IV FLUSH Last Admin: 06/18/20 14:00 Dose: 10 ml Documented by: Discontinued Medications Al Hydroxide/Mg Hydroxide 30 (ml/ Lidocaine HCl 15 ml) 0 ml PO ONETIME ONE Stop: 06/18/20 14:10 Last Admin: 06/18/20 14:19 Dose: 45 ml Documented by: Hydromorphone HCl (Hydromorphone 1 Mg/Ml Syringe) 1 mg IVPUSH ONETIME ONE Stop: 06/18/20 15:52 Last Admin: 06/18/20 15:55 Dose: 1 mg Documented by: Sodium Chloride (Normal Saline) 1,000 mls @ 999 [facility]ls[facility] Last Admin: 06/18/20 12:59 Dose: 999 mls/hr Documented by: Sodium Chloride (Normal Saline) 1,000 mls @ 150 mls/hr IV ONETIME ONE Stop: 06/18/20 21:12 Last Admin: 06/18/20 14:50 Dose: 150 mls/hr Documented by: Magnesium Sulfate (Magnesium Sulfate In Water 2 Gm/50 Ml) 2 gm in 50 mls @ 25 mls/hr IV ONETIME ONE Stop: 06/19/20 09:23 Last Admin: 06/19/20 08:27 Dose: 25 mls/hr Documented by: Iopamidol (Iopamidol 612 Mg/Ml 50 Ml Sdv) 50 ml IVPUSH ONETIME ONE Stop: 06/18/20 12:51 Last Admin: 06/18/20 14:00 Dose: 50 ml Documented by: Iopamidol (Iopamidol 612 Mg/Ml 100 Ml Bottle) 100 ml IVPUSH ONETIME ONE Stop: 06/18/20 12:51 Last Admin: 06/18/20 14:00 Dose: 100 ml Documented by: Ondansetron HCl (Ondansetron 4 Mg/2 Ml Sdv) 4 mg IVPUSH ONETIME ONE Stop: 06/18/20 12:48 Last Admin: 06/18/20 13:00 Dose: 4 mg Documented by: - Exam General: Alert, Oriented, Cooperative Lungs: Normal Respiratory Effort Cardiovascular: Regular Rate, Regular Rhythm GI/Abdominal Exam: Soft, Non-Tender, No Distention, No Abnormal Bruit - Patient Data Lab Results Last 24 hrs: Laboratory Results - last 24 hr 06/18/20 06/18/20 06/19/20 Range/Units 13:51 15:26 05:07 WBC 8.39 (4.23-9.07) K/mm3 RBC 4.78 (4.63-6.08) M/mm3 Hgb 13.6 L D (13.7-17.5) gm/dl Hct 41.5 (40.1-51.0) % MCV 86.8 (79.0-92.2) fl MCH 28.5 (25.7-32.2) pg MCHC 32.8 (32.2-35.5) g/dl RDW Std Deviation 39.2 (35.1-43.9) fL Plt Count 188 (163-337) K/mm3 MPV 9.7 (9.4-12.3) fl Neut % (Auto) 79.2 H (34.0-67.9) % Lymph % (Auto) 13.2 L (21.8-53.1) % [place] % (Auto) 6.9 (5.3-12.2) % Eos % (Auto) 0.5 L (0.8-7.0) Baso % (Auto) 0.1 (0.1-1.2) % Neut # (Auto) 6.64 H (1.78-5.38) K/mm3 Lymph # (Auto) 1.11 L (1.32-3.57) K/mm3 [place] # (Auto) 0.58 (0.30-0.82) K/mm3 Eos # (Auto) 0.04 (0.04-0.54) K/mm3 Baso # (Auto) 0.01 (0.01-0.08) K/mm3 Sodium (136-145) mEq/L Potassium (3.5-5.1) mEq/L Chloride (98-107) mEq/L Carbon Dioxide (21-32) mEq/L Anion Gap (5-15) BUN (7-18) mg/dL Creatinine (0.7-1.3) mg/dL Est Cr Clr Drug Dosing mL/min Estimated GFR (MDRD) (>60) mL/min BUN/Creatinine Ratio (14-18) Glucose (74-106) mg/dL Calcium (8.5-10.1) mg/dL Phosphorus (2.6-4.7) mg/dL Magnesium (1.8-2.4) mg/dl Urine RBC 0-5 (0-5) /hpf Urine WBC 0-5 (0-5) /hpf Ur Squamous Epith Cells 0-5 (0-5) /hpf Urine Bacteria Few (FEW) /hpf Urine Mucus Few (FEW) /hpf Influenza Type A RNA Negative (NEGATIVE) Influenza Type B RNA Negative (NEGATIVE) SARS-CoV-2 RNA (KILLIAN) Positive H (NEGATIVE) 06/19/20 Range/Units 05:07 WBC (4.23-9.07) K/mm3 RBC (4.63-6.08) M/mm3 Hgb (13.7-17.5) gm/dl Hct (40.1-51.0) % MCV (79.0-92.2) fl MCH (25.7-32.2) pg MCHC (32.2-35.5) g/dl RDW Std Deviation (35.1-43.9) fL Plt Count (163-337) K/mm3 MPV (9.4-12.3) fl Neut % (Auto) (34.0-67.9) % Lymph % (Auto) (21.8-53.1) % [place] % (Auto) (5.3-12.2) % Eos % (Auto) (0.8-7.0) Baso % (Auto) (0.1-1.2) % Neut # (Auto) (1.78-5.38) K/mm3 Lymph # (Auto) (1.32-3.57) K/mm3 [place] # (Auto) (0.30-0.82) K/mm3 Eos # (Auto) (0.04-0.54) K/mm3 Baso # (Auto) (0.01-0.08) K/mm3 Sodium 140 (136-145) mEq/L Potassium 3.6 (3.5-5.1) mEq/L Chloride 103 (98-107) mEq/L Carbon Dioxide 27 (21-32) mEq/L Anion Gap 13.6 (5-15) BUN 13 (7-18) mg/dL Creatinine 1.3 (0.7-1.3) mg/dL Est Cr Clr Drug Dosing 91.34 mL/min Estimated GFR (MDRD) > 60 (>60) mL/min BUN/Creatinine Ratio 10.0 L (14-18) Glucose 112 H (74-106) mg/dL Calcium 8.3 L (8.5-10.1) mg/dL Phosphorus 2.4 L (2.6-4.7) mg/dL Magnesium 1.7 L (1.8-2.4) mg/dl Urine RBC (0-5) /hpf Urine WBC (0-5) /hpf Ur Squamous Epith Cells (0-5) /hpf Urine Bacteria (FEW) /hpf Urine Mucus (FEW) /hpf Influenza Type A RNA (NEGATIVE) Influenza Type B RNA (NEGATIVE) SARS-CoV-2 RNA (KILLIAN) (NEGATIVE) Result Diagrams: 06/19/20 05:07 06/19/20 05:07 Sepsis Event Note - Evaluation Sepsis Screening Result: No Definite Risk - Focused Exam Vital Signs: Vital Signs Temp Pulse Resp BP Pulse Ox 06/19/20 11:54 98.8 F 79 16 128/79 96 06/19/20 11:41 99.0 F 65 20 123/85 96 06/19/20 08:12 98.6 F 76 16 139/75 93 L 06/19/20 04:05 99.3 F 94 12 134/87 94 L - Problem List Review Problem List Initiated/Reviewed/Updated: No - My Orders Last 24 Hours: My Active Orders 06/18/20 Dinner Nothing per Oral Now Diet [DIET] 06/18/20 17:40 Resuscitation Status Routine 06/18/20 19:15 Lactated Ringers [Ringers, Lactated] 1,000 ml IV ASDIRECTED 06/18/20 19:22 Up ad Zenia [RC] ASDIRECTED HYDROmorphone [Dilaudid] 0.5 mg IVPUSH Q4H PRN Ondansetron [Zofran] 4 mg IV Q4H PRN 06/18/20 19:23 Patient Status [ADT] Routine Cardiac Monitoring [RC] INTERMITTENT Intake and Output [RC] 04,16 Oxygen Therapy [RC] PRN Pulse Oximetry [RC] PRN VTE/DVT Education [RC] PER UNIT ROUTINE Vital Signs [RC] 08,12,16,20,00,04 06/18/20 19:24 Antiembolic Hose [OM.PC] Per Unit Routine 06/18/20 19:25 Antiembolic Devices [RC] PER UNIT ROUTINE 06/19/20 07:26 STOOL CULTURE/SHIGA TOXIN [MREF] Routine 06/19/20 09:00 Enoxaparin [Lovenox] 40 mg SUBCUT DAILY 06/19/20 09:27 Benzocaine/Cetylpyrd/Menthol [Cepacol Sore Throat] 1 lozenge MUCMEM Q2H PRN 06/19/20 10:00 Potassium Phosphates 30 mmole Sodium Chloride 0.9% [Normal Saline] 500 ml IV ONETIME 06/19/20 11:56 Communication Order [RC] ROUTINE 06/20/20 05:11 BASIC METABOLIC PANEL,BMP [CHEM] AM CBC WITH AUTO DIFF [HEME] AM MAGNESIUM [CHEM] AM PHOSPHORUS [CHEM] AM 06/21/20 05:11 BASIC METABOLIC PANEL,BMP [CHEM] AM CBC WITH AUTO DIFF [HEME] AM MAGNESIUM [CHEM] AM PHOSPHORUS [CHEM] AM - Assessment Assessment:: HD1 SBO. Improving on non-operative management - Plan Plan:: - Xray shows contrast within the colon. Will clamp the NGT x 4 hrs. If no nausea or vomiting then we will remove NGT and try PO challenge. I discussed this plan with the patient.
--- NOTE | 2020-06-19 16:28 | PCM.SN.2 ---
- Free Text/Narrative Note: EGD and Colonoscopy performed: No source of bleeding or any stigmata of recent bleeding found throughout the examined bowel. Patient has few small scattered diverticuli in the sigmoid colon that were non bleeding. If significant bleeding persists, consider studying the small bowel.
[2020-06-20] MEDS: Lactated Ringers 1,000 ML IV SCH (01:05)
[2020-06-20] MEDS: Enoxaparin 40 MG/0.4 ML Syringe SUBCUT SCH (08:00)
--- NOTE | 2020-06-20 11:14 | PCM.PN ---
- General Info Date of Service: 06/20/20 Admission Dx/Problem (Free Text): Admission Diagnosis/Problem Admission Diagnosis/Problem Small bowel obstruction Subjective Update: Tolerated diet overnight -CLD, no nausea or vomiting. Passing flatus and had a BM. Feeling well without any abdominal pain. Functional Status: Reports: Tolerating Diet, Ambulating, Urinating - Review of Systems General: Reports: No Symptoms HEENT: Reports: No Symptoms Pulmonary: Reports: No Symptoms Cardiovascular: Reports: No Symptoms Gastrointestinal: Reports: No Symptoms Genitourinary: Reports: No Symptoms Musculoskeletal: Reports: No Symptoms - Patient Data Vitals - Most Recent: Last Vital Signs Temp 97.9 F 06/20/20 07:55 Pulse 61 06/20/20 07:55 Resp 18 06/20/20 07:55 BP 112/56 L 06/20/20 07:55 Pulse Ox 96 06/20/20 07:55 Weight - Most Recent: 101.741 kg I&O - Last 24 Hours: Intake & Output 06/19/20 06/20/20 06/20/20 22:59 06:59 14:59 Intake Total 1876 3210 Output Total 2100 2000 Balance -224 1210 Lab Results Last 24 Hours: Laboratory Results - last 24 hr 06/20/20 06/20/20 Range/Units 04:39 04:39 WBC 7.55 (4.23-9.07) K/mm3 RBC 4.75 (4.63-6.08) M/mm3 Hgb 13.5 L (13.7-17.5) gm/dl Hct 41.3 (40.1-51.0) % MCV 86.9 (79.0-92.2) fl MCH 28.4 (25.7-32.2) pg MCHC 32.7 (32.2-35.5) g/dl RDW Std Deviation 38.8 (35.1-43.9) fL Plt Count 187 (163-337) K/mm3 MPV 9.5 (9.4-12.3) fl Neut % (Auto) 54.7 (34.0-67.9) % Lymph % (Auto) 29.3 (21.8-53.1) % Elliott % (Auto) 13.8 H (5.3-12.2) % Eos % (Auto) 2.0 (0.8-7.0) Baso % (Auto) 0.1 (0.1-1.2) % Neut # (Auto) 4.13 (1.78-5.38) K/mm3 Lymph # (Auto) 2.21 (1.32-3.57) K/mm3 Elliott # (Auto) 1.04 H (0.30-0.82) K/mm3 Eos # (Auto) 0.15 (0.04-0.54) K/mm3 Baso # (Auto) 0.01 (0.01-0.08) K/mm3 Sodium 142 (136-145) mEq/L Potassium 4.3 (3.5-5.1) mEq/L Chloride 106 (98-107) mEq/L Carbon Dioxide 28 (21-32) mEq/L Anion Gap 12.3 (5-15) BUN 7 (7-18) mg/dL Creatinine 1.1 (0.7-1.3) mg/dL Est Cr Clr Drug Dosing 107.95 mL/min Estimated GFR (MDRD) > 60 (>60) mL/min BUN/Creatinine Ratio 6.4 L (14-18) Glucose 98 (74-106) mg/dL Calcium 8.6 (8.5-10.1) mg/dL Phosphorus 3.3 (2.6-4.7) mg/dL Magnesium 1.9 (1.8-2.4) mg/dl Med Orders - Current: Current Medications Benzocaine/Menthol (Benzocaine/Cetylpyridinium/Menthol Lozenge) 1 lozenge MUCME M Q2H PRN PRN Reason: Sore Throat Last Admin: 06/19/20 15:24 Dose: 1 lozenge Documented by: Enoxaparin Sodium (Enoxaparin 40 Mg/0.4 Ml Syringe) 40 mg SUBCUT DAILY [facility]ATHER Last Admin: 06/20/20 08:00 Dose: 40 mg Documented by: Hydromorphone HCl (Hydromorphone 0.5 Mg/0.5 Ml Syringe) 0.5 mg IVPUSH Q4H PRN PRN Reason: Pain (severe 7-10) Last Admin: 06/19/20 09:37 Dose: 0.5 mg Documented by: Lactated Ringer's (Ringers, Lactated) 1,000 mls @ 150 [facility] Last Admin: 06/20/20 01:05 Dose: 150 mls/hr Documented by: Ondansetron HCl (Ondansetron 4 Mg/2 Ml Sdv) 4 mg IV Q4H PRN PRN Reason: Nausea/Vomiting Sodium Chloride (Sodium Chloride 0.9% 10 Ml Syringe) 10 ml FLUSH ONETIME PRN PRN Reason: IV FLUSH Last Admin: 06/18/20 14:00 Dose: 10 ml Documented by: Discontinued Medications Al Hydroxide/Mg Hydroxide 30 (ml/ Lidocaine HCl 15 ml) 0 ml PO ONETIME ONE Stop: 06/18/20 14:10 Last Admin: 06/18/20 14:19 Dose: 45 ml Documented by: Hydromorphone HCl (Hydromorphone 1 Mg/Ml Syringe) 1 mg IVPUSH ONETIME ONE Stop: 06/18/20 15:52 Last Admin: 06/18/20 15:55 Dose: 1 mg Documented by: Sodium Chloride (Normal Saline) 1,000 mls @ 999 mls/hr IV [facility] Last Admin: 06/18/20 12:59 Dose: 999 mls/hr Documented by: Sodium Chloride (Normal Saline) 1,000 mls @ 150 mls/hr IV ONETIME ONE Stop: 06/18/20 21:12 Last Admin: 06/18/20 14:50 Dose: 150 mls/hr Documented by: Magnesium Sulfate (Magnesium Sulfate In Water 2 Gm/50 Ml) 2 gm in 50 mls @ 25 mls/hr IV ONETIME ONE Stop: 06/19/20 09:23 Last Admin: 06/19/20 08:27 Dose: 25 mls/hr Documented by: Potassium Phosphate 30 mmole/ (Sodium Chloride) 510 mls @ 102 mls/hr IV ONETIME ONE Stop: 06/19/20 14:59 Last Admin: 06/19/20 09:42 Dose: 102 mls/hr Documented by: Iopamidol (Iopamidol 612 Mg/Ml 50 Ml Sdv) 50 ml IVPUSH ONETIME ONE Stop: 06/18/20 12:51 Last Admin: 06/18/20 14:00 Dose: 50 ml Documented by: Iopamidol (Iopamidol 612 Mg/Ml 100 Ml Bottle) 100 ml IVPUSH ONETIME ONE Stop: 06/18/20 12:51 Last Admin: 06/18/20 14:00 Dose: 100 ml Documented by: Ondansetron HCl (Ondansetron 4 Mg/2 Ml Sdv) 4 mg IVPUSH ONETIME ONE Stop: 06/18/20 12:48 Last Admin: 06/18/20 13:00 Dose: 4 mg Documented by: - Exam General: Alert, Oriented, Cooperative Lungs: Clear to Auscultation, Normal Respiratory Effort Cardiovascular: Regular Rate, Regular Rhythm GI/Abdominal Exam: Soft, Non-Tender, No Organomegaly, No Distention - Patient Data Lab Results Last 24 hrs: Laboratory Results - last 24 hr 06/20/20 06/20/20 Range/Units 04:39 04:39 WBC 7.55 (4.23-9.07) K/mm3 RBC 4.75 (4.63-6.08) M/mm3 Hgb 13.5 L (13.7-17.5) gm/dl Hct 41.3 (40.1-51.0) % MCV 86.9 (79.0-92.2) fl MCH 28.4 (25.7-32.2) pg MCHC 32.7 (32.2-35.5) g/dl RDW Std Deviation 38.8 (35.1-43.9) fL Plt Count 187 (163-337) K/mm3 MPV 9.5 (9.4-12.3) fl Neut % (Auto) 54.7 (34.0-67.9) % Lymph % (Auto) 29.3 (21.8-53.1) % Elliott % (Auto) 13.8 H (5.3-12.2) % Eos % (Auto) 2.0 (0.8-7.0) Baso % (Auto) 0.1 (0.1-1.2) % Neut # (Auto) 4.13 (1.78-5.38) K/mm3 Lymph # (Auto) 2.21 (1.32-3.57) K/mm3 Elliott # (Auto) 1.04 H (0.30-0.82) K/mm3 Eos # (Auto) 0.15 (0.04-0.54) K/mm3 Baso # (Auto) 0.01 (0.01-0.08) K/mm3 Sodium 142 (136-145) mEq/L Potassium 4.3 (3.5-5.1) mEq/L Chloride 106 (98-107) mEq/L Carbon Dioxide 28 (21-32) mEq/L Anion Gap 12.3 (5-15) BUN 7 (7-18) mg/dL Creatinine 1.1 (0.7-1.3) mg/dL Est Cr Clr Drug Dosing 107.95 mL/min Estimated GFR (MDRD) > 60 (>60) mL/min BUN/Creatinine Ratio 6.4 L (14-18) Glucose 98 (74-106) mg/dL Calcium 8.6 (8.5-10.1) mg/dL Phosphorus 3.3 (2.6-4.7) mg/dL Magnesium 1.9 (1.8-2.4) mg/dl Result Diagrams: 06/20/20 04:39 06/20/20 04:39 Sepsis Event Note - Evaluation Sepsis Screening Result: No Definite Risk - Focused Exam Vital Signs: Vital Signs Temp Pulse Resp BP Pulse Ox 06/20/20 07:55 97.9 F 61 18 112/56 L 96 06/20/20 05:17 59 L 18 121/56 L 94 L 06/20/20 01:07 98.8 F 57 L 16 128/72 96 - Problem List Review Problem List Initiated/Reviewed/Updated: No - My Orders Last 24 Hours: My Active Orders 06/19/20 11:56 Communication Order [RC] ROUTINE 06/19/20 23:17 STOOL CULTURE/SHIGA TOXIN [MREF] Routine 06/20/20 Lunch Regular Diet [DIET] 06/21/20 05:11 BASIC METABOLIC PANEL,BMP [CHEM] AM CBC WITH AUTO DIFF [HEME] AM MAGNESIUM [CHEM] AM PHOSPHORUS [CHEM] AM - Assessment Assessment:: HD2 SBO. Appears to be resolving. Etiology likely adhesive disease vs Covid-19. - Plan Plan:: -Tolerated CLD. Will advance to regular diet for lunch and if he tolerates it, he will be discharged to home. Can follow up with PCP as needed
--- NOTE | 2020-06-20 11:18 | PCM.DCSUM1 ---
Discharge Summary - Hospital Course Free Text/Narrative:: Patient developed SBO 2 days ago characterized by nausea vomiting. CT confirmed SOB. Was managed non-operatively with NPO, IVF, NGT. This resolved, and patient tolerated diet and had bowel function. He will be discharged to home. Diagnosis: Stroke: No - Discharge Data Discharge Date: 06/20/20 Discharge Disposition: Home, Self-Care 01 Condition: Good - Referral to Home Health Primary Care Physician: PCP None - Patient Instructions Diet: Heart Healthy Diet Activity: As Tolerated Driving: May Drive Today Showering/Bathing: May Shower - Discharge Plan *PRESCRIPTION DRUG MONITORING PROGRAM REVIEWED*: Not Applicable *COPY OF PRESCRIPTION DRUG MONITORING REPORT IN PATIENT CHI: Not Applicable Home Medications: Home Meds Ascorbic Acid [Vitamin C] 1,000 mg PO DAILY 06/18/20 [History] Lysine 1,000 mg PO DAILY 06/18/20 [History] Vit A/C/Biotin/Zinc/Selenometh [Biotin-Vitamin C Softgel] 1 each PO DAILY 06/18/20 [History] Oxygen Therapy Mode: Room Air Patient Handouts: Coronavirus Information 06/03/19, Prevent the Spread of COVID-19 if You Are Sick - [facility] Forms: ED Department Discharge Referrals: PCP,None [Primary Care Provider] - (Encouraged to establish care with a Primary Doctor.) - Discharge Summary/Plan Comment DC Time >30 min.: No - General Info Date of Service: 06/20/20 Admission Dx/Problem (Free Text: Admission Diagnosis/Problem Admission Diagnosis/Problem Small bowel obstruction Subjective Update: Doing well, feeling well. tolerated cld, no nausea or vomiting. has bowel function Functional Status: Reports: Tolerating Diet, Ambulating, Urinating - Review of Systems General: Reports: No Symptoms HEENT: Reports: No Symptoms Pulmonary: Reports: No Symptoms Cardiovascular: Reports: No Symptoms Gastrointestinal: Reports: No Symptoms Genitourinary: Reports: No Symptoms Musculoskeletal: Reports: No Symptoms - Patient Data Vitals - Most Recent: Last Vital Signs Temp 97.9 F 06/20/20 07:55 Pulse 61 06/20/20 07:55 Resp 18 06/20/20 07:55 BP 112/56 L 06/20/20 07:55 Pulse Ox 96 06/20/20 07:55 Weight - Most Recent: 101.741 kg I&O - Last 24 hours: Intake & Output 06/19/20 06/20/20 06/20/20 22:59 06:59 14:59 Intake Total 1876 3210 Output Total 2100 2000 Balance -224 1210 Lab Results - Last 24 hrs: Laboratory Results - last 24 hr 06/20/20 06/20/20 Range/Units 04:39 04:39 WBC 7.55 (4.23-9.07) K/mm3 RBC 4.75 (4.63-6.08) M/mm3 Hgb 13.5 L (13.7-17.5) gm/dl Hct 41.3 (40.1-51.0) % MCV 86.9 (79.0-92.2) fl MCH 28.4 (25.7-32.2) pg MCHC 32.7 (32.2-35.5) g/dl RDW Std Deviation 38.8 (35.1-43.9) fL Plt Count 187 (163-337) K/mm3 MPV 9.5 (9.4-12.3) fl Neut % (Auto) 54.7 (34.0-67.9) % Lymph % (Auto) 29.3 (21.8-53.1) % [place] % (Auto) 13.8 H (5.3-12.2) % Eos % (Auto) 2.0 (0.8-7.0) Baso % (Auto) 0.1 (0.1-1.2) % Neut # (Auto) 4.13 (1.78-5.38) K/mm3 Lymph # (Auto) 2.21 (1.32-3.57) K/mm3 [place] # (Auto) 1.04 H (0.30-0.82) K/mm3 Eos # (Auto) 0.15 (0.04-0.54) K/mm3 Baso # (Auto) 0.01 (0.01-0.08) K/mm3 Sodium 142 (136-145) mEq/L Potassium 4.3 (3.5-5.1) mEq/L Chloride 106 (98-107) mEq/L Carbon Dioxide 28 (21-32) mEq/L Anion Gap 12.3 (5-15) BUN 7 (7-18) mg/dL Creatinine 1.1 (0.7-1.3) mg/dL Est Cr Clr Drug Dosing 107.95 mL/min Estimated GFR (MDRD) > 60 (>60) mL/min BUN/Creatinine Ratio 6.4 L (14-18) Glucose 98 (74-106) mg/dL Calcium 8.6 (8.5-10.1) mg/dL Phosphorus 3.3 (2.6-4.7) mg/dL Magnesium 1.9 (1.8-2.4) mg/dl Med Orders - Current: Current Medications Benzocaine/Menthol (Benzocaine/Cetylpyridinium/Menthol Lozenge) 1 lozenge MUCMEM Q2H PRN PRN Reason: Sore Throat Last Admin: 06/19/20 15:24 Dose: 1 lozenge Documented by: Enoxaparin Sodium (Enoxaparin 40 Mg/0.4 Ml Syringe) 40 mg SUBCUT DAILY [facility] Last Admin: 06/20/20 08:00 Dose: 40 mg Documented by: Hydromorphone HCl (Hydromorphone 0.5 Mg/0.5 Ml Syringe) 0.5 mg IVPUSH Q4H PRN PRN Reason: Pain (severe 7-10) Last Admin: 06/19/20 09:37 Dose: 0.5 mg Documented by: Lactated Ringer's (Ringers, Lactated) 1,000 mls @ 150 mls/hr IV ASDIRECTED [facility] Last Admin: 06/20/20 01:05 Dose: 150 mls/hr Documented by: Ondansetron HCl (Ondansetron 4 Mg/2 Ml Sdv) 4 mg IV Q4H PRN PRN Reason: Nausea/Vomiting Sodium Chloride (Sodium Chloride 0.9% 10 Ml Syringe) 10 ml FLUSH ONETIME PRN PRN Reason: IV FLUSH Last Admin: 06/18/20 14:00 Dose: 10 ml Documented by: Discontinued Medications Al Hydroxide/Mg Hydroxide 30 (ml/ Lidocaine HCl 15 ml) 0 ml PO ONETIME ONE Stop: 06/18/20 14:10 Last Admin: 06/18/20 14:19 Dose: 45 ml Documented by: Hydromorphone HCl (Hydromorphone 1 Mg/Ml Syringe) 1 mg IVPUSH ONETIME ONE Stop: 06/18/20 15:52 Last Admin: 06/18/20 15:55 Dose: 1 mg Documented by: Sodium Chloride (Normal Saline) 1,000 mls @ 999 mls/hr IV ASDIRECTED [facility]ATHER Last Admin: 06/18/20 12:59 Dose: 999 mls/hr Documented by: Sodium Chloride (Normal Saline) 1,000 mls @ 150 mls/hr IV ONETIME ONE Stop: 06/18/20 21:12 Last Admin: 06/18/20 14:50 Dose: 150 mls/hr Documented by: Magnesium Sulfate (Magnesium Sulfate In Water 2 Gm/50 Ml) 2 gm in 50 mls @ 25 mls/hr IV ONETIME ONE Stop: 06/19/20 09:23 Last Admin: 06/19/20 08:27 Dose: 25 mls/hr Documented by: Potassium Phosphate 30 mmole/ (Sodium Chloride) 510 mls @ 102 mls/hr IV ONETIME ONE Stop: 06/19/20 14:59 Last Admin: 06/19/20 09:42 Dose: 102 mls/hr Documented by: Iopamidol (Iopamidol 612 Mg/Ml 50 Ml Sdv) 50 ml IVPUSH ONETIME ONE Stop: 06/18/20 12:51 Last Admin: 06/18/20 14:00 Dose: 50 ml Documented by: Iopamidol (Iopamidol 612 Mg/Ml 100 Ml Bottle) 100 ml IVPUSH ONETIME ONE Stop: 06/18/20 12:51 Last Admin: 06/18/20 14:00 Dose: 100 ml Documented by: Ondansetron HCl (Ondansetron 4 Mg/2 Ml Sdv) 4 mg IVPUSH ONETIME ONE Stop: 06/18/20 12:48 Last Admin: 06/18/20 13:00 Dose: 4 mg Documented by: - Exam General: Reports: Alert, Oriented, Cooperative Lungs: Reports: Normal Respiratory Effort Cardiovascular: Reports: Regular Rate, Regular Rhythm GI/Abdominal Exam: Soft, Non-Tender, No Organomegaly, No Distention
[2020-06-20 11:21] VITALS: BP 127/75; PULSE 72
== END 2020-06-20 12:30 | disposition home or self-care (01) | DRG 388 ==
LOC: JD.ED 12:26 → JD.MS 15:54
PROVIDERS: ADMIT Surgery; ATTEND Surgery
DX: K56.609 Unspecified intestinal obstruction, unspecified as to partial versus complete obstruction (principal); U07.1 COVID-19; K21.9 Gastro-esophageal reflux disease without esophagitis; F41.9 Anxiety disorder, unspecified; Z90.49 Acquired absence of other specified parts of digestive tract
CPT/HCPCS: 0240U; 36415; 43752; 74018; 74018-26; 74177; 74177-26; 80048; 80053; 81001; 83690; 83735; 84100; 85007; 85025; 85027; 86140; 87045; 87046; 87899; 96374; 99285; 99285-25; A9270-GY; J1170; J1650; J2405; J3475; J3490; J7030; J7040; J7120; Q9963; Q9967

== ENCOUNTER 2020-08-14 20:16 | Emergency (ER) | payer SELFPAY ==
[2020-08-14] MEDS ORDERED: Lidocaine 1% with EPINEPHrine 1:100,000 10 ML MDV INJECT ONE (20:30)
[2020-08-14 20:33] VITALS: BP 161/92; PULSE 81
--- NOTE | 2020-08-14 20:35 | EDM.PDOC ---
ED HPI GENERAL MEDICAL PROBLEM - General Chief Complaint: Laceration Stated Complaint: hand lac Time Seen by Provider: 08/14/20 20:24 Source of Information: Reports: Patient, RN Notes Reviewed History Limitations: Reports: No Limitations - History of Present Illness INITIAL COMMENTS - FREE TEXT/NARRATIVE: Patient is a 35-year-old male who presents to the ER for his hand lacerations. He was at work, when a glass exploded/shattered in his hand, this resulted in a roughly 2 cm linear laceration to the posterior aspect of the patient's left second digit MCP that is still actively bleeding, along with a smaller superficial abrasion to the palmar surface of his hand. Patient also has a small laceration to the distal right thumb, at the edge of the nail line. Patient believes he is up-to-date on his tetanus vaccine. He is feeling well prior to this, and denies any fevers or chills, cough or shortness of breath, nausea/vomiting/diarrhea. There is no tenderness injury apparent on initial exam and he is denying any numbness or tingling distal to the injury. - Related Data Allergies Allergy/AdvReac Type Severity Reaction Status Date / Time bee venom protein (honey bee) Allergy Anaphylactic Verified 08/14/20 20:33 Shock Penicillins Allergy Hives Verified 08/14/20 20:33 strawberry Allergy Swollen Verified 08/14/20 20:33 Tongue Home Meds: Home Meds Ascorbic Acid [Vitamin C] 1,000 mg PO DAILY 06/18/20 [History] Lysine 1,000 mg PO DAILY 06/18/20 [History] Vit A/C/Biotin/Zinc/Selenometh [Biotin-Vitamin C Softgel] 1 each PO DAILY 06/18/20 [History] Past Medical History HEENT History: Reports: Other (See Below) Other HEENT History: Sinus issues in the past. Gastrointestinal History: Reports: GERD Genitourinary History: Reports: Renal Calculus, Other (See Below) Musculoskeletal History: Reports: Other (See Below) Other Musculoskeletal History: Rhabdomylosis history Neurological History: Reports: Concussion, Other (See Below) Other Neuro History: [place] palsy Psychiatric History: Reports: Addiction, Anxiety Dermatologic History: Reports: Other (See Below) Other Dermatologic History: Sensitive skin. - Infectious Disease History Infectious Disease History: Reports: Chicken Pox, Novel Coronavirus, Shingles - Past Surgical History GI Surgical History: Reports: Appendectomy Other Musculoskeletal Surgeries/Procedures:: Rhabdo Social & Family History - Family History Family Medical History: No Pertinent Family History - Caffeine Use Caffeine Use: Reports: Coffee, Energy Drinks, Soda ED ROS GENERAL - Review of Systems Review Of Systems: Comprehensive ROS is negative, except as noted in HPI. ED EXAM, SKIN/RASH Exam: See Below Exam Limited By: No Limitations General Appearance: Alert, WD/WN, No Apparent Distress Respiratory/Chest: No Respiratory Distress, Lungs Clear, Normal Breath Sounds, No Accessory Muscle Use, Chest Non-Tender Cardiovascular: Normal Peripheral Pulses, Regular Rate, Rhythm, No Edema Peripheral Pulses: 2+: Radial (L), Radial (R) Extremities: Normal Range of Motion, Normal Capillary Refill Neurological: Alert, Oriented, Normal Cognition, No Motor/Sensory Deficits Psychiatric: Normal Affect, Normal Mood Skin: Warm, Dry, Normal Color, No Rash, Wound/Incision (Wound #1: Second digit, over posterior MCP roughly 2 cm in length into the subcutaneous tissue. Wound #2: Small superficial abrasion on the patient's palmar surface, on the ulnar aspect of the left hand. Wound #3: The tip of the posterior distal right thumb at the edge of the nail line.) ED SKIN PROCEDURES - Laceration/Wound Repair Left Posterior Proximal Digit - 2nd (Index) Appearance: Subcutaneous, Clean Distal NVT: Neuro & Vascular Intact, No Tendon Injury Anesthetic Type: Local Local Anesthesia - Lidocaine (Xylocaine): 1% with EPI Local Anesthetic Volume: 4cc Skin Prep: Providone-Iodine (Betadine), Saline Exploration/Debridement/Repair: Wound Explored, In a Bloodless Field, Explored to Base, No Foreign Material Found Closed with: Sutures Lac/Wound length In cm: 2 Suture Size: 4-0 # of Sutures: 5 Suture Type: Prolene, Interrupted, Simple Sterile Dressing Applied: Nurse Tetanus Status Addressed: Yes Complications: No Course - Vital Signs Last Recorded V/S: Last Vital Signs Temp 97.5 F 08/14/20 20:31 Pulse 81 08/14/20 20:31 Resp 18 08/14/20 20:31 BP 161/92 H 08/14/20 20:31 Pulse Ox 97 08/14/20 20:31 - Orders/Labs/Meds Meds: Medications Discontinued Medications Generic Name Dose Route Start Last Admin Trade Name Waldemar PRN Reason Stop Dose Admin Lidocaine/Epinephrine 10 ml 08/14/20 20:30 08/14/20 20:35 Lidocaine 1% With Epinephrine 1:100,000 10 Ml Mdv INJECT 08/14/20 20:31 10 ml ONETIME ONE Administration Departure - Departure Time of Disposition: 20:34 Disposition: Home, Self-Care 01 Condition: Good Clinical Impression: Laceration of hand Qualifiers: Encounter type: initial encounter Foreign body presence: without foreign body Laterality: left Qualified Code(s): S61.412A - Laceration without foreign body of left hand, initial encounter Laceration of right thumb Qualifiers: Encounter type: initial encounter Damage to nail status: without damage Foreign body presence: without foreign body Qualified Code(s): S61.011A - Laceration without foreign body of right thumb without damage to nail, initial encounter - Discharge Information *PRESCRIPTION DRUG MONITORING PROGRAM REVIEWED*: No *COPY OF PRESCRIPTION DRUG MONITORING REPORT IN PATIENT CHI: No Instructions: Sutures, [place], or Adhesive Wound Closure, [id number] Referrals: PCP,None [Primary Care Provider] - Forms: ED Department Discharge Additional Instructions: You have been evaluated in the ED for your laceration. Sutures will need to stay in for 10 to 14 days. You may return to the ED or any clinic for removal. Please keep this area clean and dry, you may cleanse with regular soap and water. No vigorous scrubbing. Please try to avoid submerging the affected area in water for prolonged periods of time until the sutures are removed. Watch out for signs of infection like increased redness, swelling, pain at the laceration site, or if you should develop any fevers or chills. Please return to ED if your symptoms change or worsen. Sepsis Event Note (ED) - Focused Exam Vital Signs: Vital Signs Temp Pulse Resp BP Pulse Ox 08/14/20 20:31 97.5 F 81 18 161/92 H 97
== END 2020-08-14 20:59 | disposition home or self-care (01) ==
LOC: JD.ED 20:16
DX: S61.211A Laceration without foreign body of left index finger without damage to nail, initial encounter (principal); S61.011A Laceration without foreign body of right thumb without damage to nail, initial encounter; Z91.048 Other nonmedicinal substance allergy status; Z88.0 Allergy status to penicillin; Z91.030 Bee allergy status; Z86.16 Personal history of COVID-19; W25.XXXA Contact with sharp glass, initial encounter
CPT/HCPCS: 12001; 99282-25; 99283

== ENCOUNTER 2020-12-24 11:34 | Emergency (ER) | payer SELFPAY ==
[2020-12-24] MEDS ORDERED: cefTRIAXone 1 GM, Lidocaine 1% 2.1 ML IM ONE ×2 (12:02)
--- NOTE | 2020-12-24 12:10 | EDM.PDOC ---
ED HPI GENERAL MEDICAL PROBLEM - General Chief Complaint: Skin Complaint Stated Complaint: SKIN COMPLAINT/FACIAL REDNESS AND SWELLING Time Seen by Provider: 12/24/20 11:53 Source of Information: Reports: Patient, RN Notes Reviewed History Limitations: Reports: No Limitations - History of Present Illness INITIAL COMMENTS - FREE TEXT/NARRATIVE: Patient is a 35-year-old male who presents to the ER for evaluation of his facial redness and swelling. Patient states last week, he was running for flies or other bugs, when he thinks he may have gotten some of the chemical on his fa ce. He has been using Benadryl, Tylenol ibuprofen for the swelling. But he states that the redness has spread a little bit more, and the swelling has also increased. He is not having any airway discomfort, and is not having any visible respiratory distress. There are multiple scabbed lesions over his face, with associated redness and swelling. No drainage from any of the wounds. He has had no fevers or chills, cough or shortness of breath, or any sort of nausea/vomiting/diarrhea. Face/Facial Pain Score (Numeric/FACES): 6 - Related Data Allergies Allergy/AdvReac Type Severity Reaction Status Date / Time bee venom protein (honey bee) Allergy Severe Anaphylactic Verified 12/24/20 11:55 Shock Penicillins Allergy Severe Hives Verified 12/24/20 11:55 strawberry Allergy Severe Swollen Verified 12/24/20 11:55 Tongue Home Meds: Home Meds Ascorbic Acid [Vitamin C] 1,000 mg PO DAILY 06/18/20 [History] Lysine 1,000 mg PO DAILY 06/18/20 [History] Vit A/C/Biotin/Zinc/Selenometh [Biotin-Vitamin C Softgel] 1 each PO DAILY 06/18/20 [History] Sulfamethoxazole/Trimethoprim [Bactrim Ds Tablet] 1 tab PO BID 7 Days #14 tablet 12/24/20 [Rx] Zinc 0 mg PO DAILY 12/24/20 [History] methylPREDNISolone [Medrol Dose Pack] 4 mg PO ASDIRECTED #1 dospk 12/24/20 [Rx] Past Medical History HEENT History: Reports: Other (See Below) Other HEENT History: Sinus issues in the past. Gastrointestinal History: Reports: GERD Genitourinary History: Reports: Renal Calculus, Other (See Below) Musculoskeletal History: Reports: Other (See Below) Other Musculoskeletal History: Rhabdomylosis history Neurological History: Reports: Concussion, Other (See Below) Other Neuro History: [place] palsy Psychiatric History: Reports: Addiction, Anxiety Endocrine/Metabolic History: Reports: Obesity/BMI 30+ Dermatologic History: Reports: Other (See Below) Other Dermatologic History: Sensitive skin. - Infectious Disease History Infectious Disease History: Reports: Chicken Pox, Novel Coronavirus, Shingles - Past Surgical History GI Surgical History: Reports: Appendectomy Other Musculoskeletal Surgeries/Procedures:: Rhabdo Social & Family History - Family History Family Medical History: No Pertinent Family History - Caffeine Use Caffeine Use: Reports: Energy Drinks - Recreational Drug Use Recreational Drug Use: No ED ROS GENERAL - Review of Systems Review Of Systems: Comprehensive ROS is negative, except as noted in HPI. ED EXAM, SKIN/RASH Exam: See Below Exam Limited By: No Limitations General Appearance: Alert, WD/WN, No Apparent Distress Eye Exam: Bilateral Eye: EOMI, Normal Inspection, PERRL Throat/Mouth: Normal Inspection, Normal Lips, Normal Teeth, Normal Gums, Normal Oropharynx, Normal Voice, No Airway Compromise Head: Facial Swelling (slight swelling about some of the sores on the face, more swelling noted to left maxilla area today) Neck: Normal Inspection, Supple, Non-Tender, Full Range of Motion Respiratory/Chest: No Respiratory Distress, Lungs Clear, Normal Breath Sounds, No Accessory Muscle Use, Chest Non-Tender Cardiovascular: Normal Peripheral Pulses, Regular Rate, Rhythm, No Edema Extremities: Normal Inspection, Normal Capillary Refill Neurological: Alert, Oriented, Normal Cognition, No Motor/Sensory Deficits Psychiatric: Normal Affect, Normal Mood Skin: Warm, Dry, Other (Multiple crusted lesions to the patient's bilateral maxilla, forehead, and lateral face.) Location, Skin: Face Characteristics: Macular, Erythematous Associated features: Warmth, Tenderness, Swelling, Inflammation, Crusting. No: Weeping Course - Vital Signs Last Recorded V/S: Last Vital Signs Temp 97.6 F 12/24/20 11:52 Pulse 79 12/24/20 11:52 Resp 16 12/24/20 11:52 BP 126/85 12/24/20 11:52 Pulse Ox 100 12/24/20 11:52 - Orders/Labs/Meds Meds: Medications Discontinued Medications Generic Name Dose Route Start Last Admin Trade Name Freq PRN Reason Stop Dose Admin Ceftriaxone Sodium 1 gm/ 0 gm 12/24/20 12:02 Lidocaine HCl 2.1 ml IM 12/24/20 12:03 ONETIME ONE - Re-Assessments/Exams Free Text/Narrative Re-Assessment/Exam: 12/24/20 12:08 Patient presents to the ER for evaluation of his facial swelling/redness. It does appear he has cellulitis of his face, about some of the sores. The areas are crusted over, nothing is actively draining. He denies any history of MRSA or drug use. We will go ahead and give him 1 g IM Rocephin and then start him on Bactrim for outpatient management. I will have him follow-up in a few days time if symptoms or not getting much better. Departure - Departure Time of Disposition: 12:08 Disposition: Home, Self-Care 01 Condition: Good Clinical Impression: Facial cellulitis, Exposure to chemical irritant - Discharge Information *PRESCRIPTION DRUG MONITORING PROGRAM REVIEWED*: No *COPY OF PRESCRIPTION DRUG MONITORING REPORT IN PATIENT CHI: No Prescriptions: Sulfamethoxazole/Trimethoprim [Bactrim Ds Tablet] 1 tab PO BID 7 Days #14 tablet Instructions: Cellulitis, Adult, [id number], Contact Dermatitis, [id number] Referrals: PCP,None [Primary Care Provider] - Forms: ED Department Discharge, ED Return to Work/School Form Additional Instructions: You were evaluated in the ER today regarding a suspected skin infection. It does appear that you have a cellulitis with possible chemical irritant de rmatitis. You were given an antibiotic, Bactrim (trimethoprim/sulfamethoxazole) please take as prescribed until the course is done or told otherwise by different provider. Please note that this antibiotic will take at least 48 hours to start working appropriately. You were also given IM Rocephin in the ER, to help start providing more urgent coverage due to the cellulitis of your face. You may try to use heat/ice packs to the area to help reduce pain/swelling. You were also given a short course of steroids to help relieve some of the swelling. These medications were electronically prescribed to the [place] [facility] located in the [facility]. Monitor the area of swelling/redness, if it does not seem to be getting much better after about 48-72 hours please do not hesitate to have another provider look at this to make sure that it is not worsening. Please return to the ER at any time if your symptoms change or worsen. Sepsis Event Note (ED) - Evaluation Sepsis Screening Result: No Definite Risk - Focused Exam Vital Signs: Vital Signs Temp Pulse Resp BP Pulse Ox 12/24/20 11:52 97.6 F 79 16 126/85 100
[2020-12-24 12:46] VITALS: BP 122/87; PULSE 78
== END 2020-12-24 12:48 | disposition home or self-care (01) ==
LOC: JD.ED 11:34
DX: L03.211 Cellulitis of face (principal); E66.9 Obesity, unspecified; Z68.33 Body mass index [BMI] 33.0-33.9, adult; Z77.098 Contact with and (suspected) exposure to other hazardous, chiefly nonmedicinal, chemicals; Z86.16 Personal history of COVID-19; Z91.018 Allergy to other foods; Z91.030 Bee allergy status; Z88.0 Allergy status to penicillin; Z79.899 Other long term (current) drug therapy
CPT/HCPCS: 96372; 99283; J0696

== ENCOUNTER 2021-01-14 15:04 | Emergency (ER) | payer SELFPAY ==
[2021-01-14] MEDS ORDERED: Sodium Chloride 0.9% 10 ML Syringe FLUSH PRN (16:23)
[2021-01-14 16:44] VITALS: BP 137/86; PULSE 84
[2021-01-14] MEDS ORDERED: Iopamidol 612 MG/ML 100 ML Bottle IVPUSH ONE (16:50)
--- NOTE | 2021-01-14 17:11 | EDM.PDOC ---
ED HPI GENERAL MEDICAL PROBLEM - General Chief Complaint: Skin Complaint Stated Complaint: R EYE SWOLLEN SHUT Time Seen by Provider: 01/14/21 15:37 Source of Information: Reports: Patient, Family History Limitations: Reports: No Limitations - History of Present Illness INITIAL COMMENTS - FREE TEXT/NARRATIVE: The patient presents with lesions and his face and right eye swelling. He has been having a skin infection no and off for over 6 months. Today his right eye is swelling shut. He had drainage from it last night. He has no fever or chills. He was seen here 3 weeks ago and he was put on bactrim and keflex. He said the infection totally cleared up. He started getting lesions about a week ago. For a full week he had no infection. He still can see out of his right eye when he can get his eyelid open. He has no cough, congestion, chest pain, shortness of breath, abdominal pain, nausea or vomiting. 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 No other areas of his body are affected. Onset: Gradual Duration: Week(s): Location: Reports: Face Quality: Reports: Sharp Severity: Moderate Improves with: Reports: None Worsens with: Reports: None Associated Symptoms: Reports: No Other Symptoms - Related Data Allergies Allergy/AdvReac Type Severity Reaction Status Date / Time bee venom protein (honey bee) Allergy Severe Anaphylactic Verified 01/14/21 16:44 Shock Penicillins Allergy Severe Hives Verified 01/14/21 16:44 strawberry Allergy Severe Swollen Verified 01/14/21 16:44 Tongue Home Meds: Home Meds Ascorbic Acid [Vitamin C] 1,000 mg PO DAILY 06/18/20 [History] Lysine 1,000 mg PO DAILY 06/18/20 [History] Vit A/C/Biotin/Zinc/Selenometh [Biotin-Vitamin C Softgel] 1 each PO DAILY 06/18/20 [History] Zinc 0 mg PO DAILY 12/24/20 [History] Doxycycline [Vibramycin] 100 mg PO BID #20 cap 01/14/21 [Rx] Mupirocin Oint [Bactroban Oint] 1 gm TOP BID #22 gm 01/14/21 [Rx] Past Medical History HEENT History: Reports: Other (See Below) Other HEENT History: Sinus issues in the past. Gastrointestinal History: Reports: GERD Genitourinary History: Reports: Renal Calculus, Other (See Below) Musculoskeletal History: Reports: Other (See Below) Other Musculoskeletal History: Rhabdomylosis history Neurological History: Reports: Concussion, Other (See Below) Other Neuro History: [place] palsy Psychiatric History: Reports: Addiction, Anxiety Endocrine/Metabolic History: Reports: Obesity/BMI 30+ Dermatologic History: Reports: Other (See Below) Other Dermatologic History: Sensitive skin. - Infectious Disease History Infectious Disease History: Reports: Chicken Pox, Novel Coronavirus, Shingles - Past Surgical History GI Surgical History: Reports: Appendectomy Other Musculoskeletal Surgeries/Procedures:: Rhabdo Social & Family History - Family History Family Medical History: No Pertinent Family History - Caffeine Use Caffeine Use: Reports: Energy Drinks ED ROS GENERAL - Review of Systems Review Of Systems: See Below Constitutional: Reports: No Symptoms HEENT: Reports: Other (Right eyelid edema. Multiple lesions on his face) Respiratory: Reports: No Symptoms Cardiovascular: Reports: No Symptoms Endocrine: Reports: No Symptoms GI/Abdominal: Reports: No Symptoms : Reports: No Symptoms Musculoskeletal: Reports: No Symptoms ED EXAM, SKIN/RASH Exam: See Below Exam Limited By: No Limitations General Appearance: Alert, No Apparent Distress Eye Exam: Left Eye: Other (Right upper and lower edema) Ears: Normal External Exam Nose: Normal Inspection Throat/Mouth: Normal Inspection Head: Other (Multiple areas of erythems and crusting in the hair, forehead, nose, right and left cheeks with crusting and some honey colored drainage) Neck: Normal Inspection, Supple, Non-Tender Respiratory/Chest: No Respiratory Distress, Lungs Clear, Normal Breath Sounds Cardiovascular: Regular Rate, Rhythm, No Edema, No Murmur GI/Abdominal: Soft, Non-Tender, No Organomegaly, No Mass Back Exam: Normal Inspection Extremities: Normal Inspection Course - Vital Signs Last Recorded V/S: Last Vital Signs Temp 97.5 F 01/14/21 15:40 Pulse 84 01/14/21 15:40 Resp 16 01/14/21 15:40 BP 137/86 01/14/21 15:40 Pulse Ox 99 01/14/21 15:40 - Orders/Labs/Meds Orders: Active Orders 24 hr Category Date Time Status Peripheral IV Care [RC] . DIRECTED Care 01/14/21 16:24 Active COMPREHENSIVE METABOLIC PN,CMP [CHEM] Stat Lab 01/14/21 17:20 Received CRP [C-REACTIVE PROTEIN] [CHEM] Stat Lab 01/14/21 17:20 Received Sodium Chloride 0.9% [Saline Flush] Med 01/14/21 16:23 Active 10 ml FLUSH ASDIRECTED PRN Peripheral IV Insertion Adult [OM.PC] Stat Oth 01/14/21 16:23 Ordered Medication Orders Sodium Chloride (Sodium Chloride 0.9% 10 Ml Syringe) 10 ml FLUSH ASDIRECTED PRN PRN Reason: Keep Vein Open Last Admin: 01/14/21 17:19 Dose: 10 ml Documented by: [id number] Labs: Laboratory Tests 01/14/21 Range/Units 17:20 WBC 8.52 (4.23-9.07) K/mm3 RBC 4.76 (4.63-6.08) M/mm3 Hgb 13.4 L (13.7-17.5) gm/dl Hct 40.9 (40.1-51.0) % MCV 85.9 (79.0-92.2) fl MCH 28.2 (25.7-32.2) pg MCHC 32.8 (32.2-35.5) g/dl RDW Std Deviation 37.6 (35.1-43.9) fL Plt Count 243 (163-337) K/mm3 MPV 9.3 L (9.4-12.3) fl Neut % (Auto) 61.1 (34.0-67.9) % Lymph % (Auto) 27.0 (21.8-53.1) % Reeves % (Auto) 9.4 (5.3-12.2) % Eos % (Auto) 1.9 (0.8-7.0) Baso % (Auto) 0.4 (0.1-1.2) % Neut # (Auto) 5.21 (1.78-5.38) K/mm3 Lymph # (Auto) 2.30 (1.32-3.57) K/mm3 Reeves # (Auto) 0.80 (0.30-0.82) K/mm3 Eos # (Auto) 0.16 (0.04-0.54) K/mm3 Baso # (Auto) 0.03 (0.01-0.08) K/mm3 Meds: Medications Generic Name Dose Route Start Last Admin Trade Name Waldemar PRN Reason Stop Dose Admin Sodium Chloride 10 ml 01/14/21 16:23 01/14/21 17:19 Sodium Chloride 0.9% 10 Ml Syringe FLUSH 10 ml ASDIRECTED PRN Administration Keep Vein Open Discontinued Medications Generic Name Dose Route Start Last Admin Trade Name Waldemar PRN Reason Stop Dose Admin Iopamidol 100 ml 01/14/21 16:50 01/14/21 17:18 Iopamidol 612 Mg/Ml 100 Ml Bottle IVPUSH 01/14/21 16:51 80 ml ONETIME ONE Administration - Re-Assessments/Exams Free Text/Narrative Re-Assessment/Exam: 01/14/21 17:14 I ordered an IV saline lock, labs and a CT of his face. 01/14/21 18:12 His WBC is normal. His CT shows diffuse soft tissue swelling anteriorly around the right orbit and within the right periorbital region. No fluid collections are seen to indicate abscess. Findings presumably represent prominent cellulitis. Findings do not extend posterior nor do they involve the globe. Chronic mucosal thickening and retention cysts within the paranasal sinuses. No additional abnormality is seen on CT study fo the facial structures. He has impetigo and there is swelling to his right eye lids from the forehead. I will get him on doxycycline and mupericoine ointment. Departure - Departure Time of Disposition: 18:20 Disposition: Home, Self-Care 01 Condition: Good Clinical Impression: Impetigo - Discharge Information *PRESCRIPTION DRUG MONITORING PROGRAM REVIEWED*: Not Applicable *COPY OF PRESCRIPTION DRUG MONITORING REPORT IN PATIENT CHI: Not Applicable Prescriptions: Mupirocin Oint [Bactroban Oint] 1 gm TOP BID #22 gm Doxycycline [Vibramycin] 100 mg PO BID #20 cap Referrals: PCP,None [Primary Care Provider] - Zechariah Brooks MD [Ordering Only Provider] - 1 Week Forms: ED Department Discharge Additional Instructions: Drink plenty of fluids. Take the doxycycline 100mg by mouth 2 times per day for 10 days. Use the bactroban ointment 2 times per day until cleared up. Follow up with Dr Brooks within a week or two. Please return if you are worse. Try to sleep with a few pillows to reduce the swelling around your eye. Sepsis Event Note (ED) - Evaluation Sepsis Screening Result: No Definite Risk - Focused Exam Vital Signs: Vital Signs Temp Pulse Resp BP Pulse Ox 01/14/21 15:40 97.5 F 84 16 137/86 99 - My Orders Last 24 Hours: My Active Orders 01/14/21 16:23 Sodium Chloride 0.9% [Saline Flush] 10 ml FLUSH ASDIRECTED PRN Peripheral IV Insertion Adult [OM.PC] Stat 01/14/21 16:24 Peripheral IV Care [RC] . DIRECTED 01/14/21 17:20 COMPREHENSIVE METABOLIC PN,CMP [CHEM] Stat CRP [C-REACTIVE PROTEIN] [CHEM] Stat - Assessment/Plan Last 24 Hours: My Active Orders 01/14/21 16:23 Sodium Chloride 0.9% [Saline Flush] 10 ml FLUSH ASDIRECTED PRN Peripheral IV Insertion Adult [OM.PC] Stat 01/14/21 16:24 Peripheral IV Care [RC] . DIRECTED 01/14/21 17:20 COMPREHENSIVE METABOLIC PN,CMP [CHEM] Stat CRP [C-REACTIVE PROTEIN] [CHEM] Stat
--- NOTE | 2021-01-14 17:37 | CT ---
CT maxillofacial with contrast Technique: Multiple axial sections were obtained through the facial structures. Intravenous contrast was utilized. Reconstructed coronal and sagittal images were obtained. Findings: Diffuse soft tissue swelling is seen around the right orbit and right periorbital region. Soft tissue infection is anterior and does not extend posteriorly. No abnormality is seen within either globe. No retrobulbar abnormality is seen. No fluid collections are seen to indicate discrete abscess. Retention cysts are noted within both maxillary sinuses with largest measuring 1.9 cm. Mild mucosal thickening is seen within the ethmoid and maxillary sinuses. No fluid is seen within the paranasal sinuses. Submandibular salivary glands and parotid salivary glands appear within normal limits. Normal enhancing vascular structures are seen. No adenopathy is noted. Prevertebral soft tissues are normal. No facial bone fracture is seen. Impression: 1. Diffuse soft tissue swelling anteriorly around the right orbit and within the right periorbital region. No fluid collections are seen to indicate abscess. Findings presumably represent prominent cellulitis. Findings do not extend posterior nor do they involve the globe. 2. Chronic mucosal thickening and retention cysts within the paranasal sinuses. 3. No additional abnormality is seen on CT study of the facial structures. Diagnostic code #3
== END 2021-01-14 18:58 | disposition home or self-care (01) ==
LOC: JD.ED 15:04
DX: L01.00 Impetigo, unspecified (principal); E66.9 Obesity, unspecified; Z68.32 Body mass index [BMI] 32.0-32.9, adult; Z91.030 Bee allergy status; Z88.0 Allergy status to penicillin; Z91.018 Allergy to other foods
CPT/HCPCS: 36415; 70487; 80053; 85025; 86140; 99284; Q9967

== ENCOUNTER 2021-10-15 18:27 | Emergency (ER) | payer BC ==
[2021-10-15 19:02] VITALS: BP 135/92; PULSE 92
[2021-10-15] MEDS ORDERED: Clindamycin HCl 150 MG Cap PO ONE (20:16)
[2021-10-15] MEDS ORDERED: Cefdinir 300 MG Cap PO ONE (20:28)
== END 2021-10-15 20:53 | disposition home or self-care (01) ==
LOC: JD.ED 18:27
DX: H66.93 Otitis media, unspecified, bilateral (principal); E66.9 Obesity, unspecified; Z68.36 Body mass index [BMI] 36.0-36.9, adult; Z91.030 Bee allergy status; Z88.0 Allergy status to penicillin; Z91.018 Allergy to other foods; Z79.899 Other long term (current) drug therapy; Z86.16 Personal history of COVID-19; Z90.49 Acquired absence of other specified parts of digestive tract; Z20.822 Contact with and (suspected) exposure to COVID-19
CPT/HCPCS: 87635; 87651; 99283; A9270; U0002

== ENCOUNTER 2022-06-28 05:07 | Emergency (ER) | payer OTHER ==
[2022-06-28] MEDS ORDERED: methylPREDNISolone Sodium Succinate 125 MG/2 ML SDV IVPUSH ONE (05:31)
[2022-06-28] MEDS ORDERED: Famotidine 20 MG/2 ML SDV IVPUSH ONE (05:31)
[2022-06-28] MEDS ORDERED: diphenhydrAMINE 50 MG/ML SDV IVPUSH ONE (05:31)
[2022-06-28] MEDS ORDERED: EPINEPHrine 1 MG/ML SDV IM ONE (05:31)
[2022-06-28 07:27] LABS: CORONAVIRUS COVID-19 NAA NEGATIVE (NEGATIVE)
[2022-06-28 07:57] VITALS: BP 139/89; PULSE 86
== END 2022-06-28 07:50 | disposition home or self-care (01) ==
LOC: JD.ED 05:07
DX: T78.40XA Allergy, unspecified, initial encounter (principal); E66.9 Obesity, unspecified; Z91.030 Bee allergy status; Z91.018 Allergy to other foods; Z88.0 Allergy status to penicillin; Z87.891 Personal history of nicotine dependence; Z20.822 Contact with and (suspected) exposure to COVID-19; Z68.37 Body mass index [BMI] 37.0-37.9, adult
CPT/HCPCS: 0240U; 87651; 96372; 96374; 96375; 99283; J0171; J1200; J2930; J3490; 99284